=== PATIENT | male | born 1955 | race Caucasian/White ===

== ENCOUNTER 2019-03-08 15:59 | Emergency (ER) | payer OTHER, SELFPAY ==
[2019-03-08 15:59] VITALS: BP 163/92; PULSE 75; RESP 14; TEMP 36.3; O2SAT 96; BMI 37.5
--- NOTE | 2019-03-08 16:29 | ED.VISSUMM ---
- ER Visit Summary Date of Service: 03/08/19 .. Chief Complaint: Hand infection History of Present Illness: The patient is a 63 M who presents to the emergency department with right hand swelling and warmth. Patient states that on February 06 he had a large splinter anterior the medial aspect of the volar surface of the right middle finger over the proximal phalanx. Tented the skin laterally. He went to outside emergency room removed. He was placed on the antibiotic. He states that within 24 hours he was back in the emergency department tertiary care facility he states he had x-rays show any foreign bodies. He was discharged home. He has subsequently been on 2 other antibiotics. He notes that the hand continues to be swollen warm red sloughing of the skin on the third digit. Is able to make a fist. He denies any systemic fever. No lymphangitic streaking per him. He states that today [employer] called to see how he was doing was noted that his hand was still swollen and they sent him to emergency department. He notes that nothing is different with his hand today as there was 1 week ago. Physical Examination: Afebrile vital signs stable Gen: Well-nourished well-developed Head: Normocephalic atraumatic Eyes: Perrl EOMI ENT: TMs clear no rhinorrhea moist mucous membranes Neck: Supple no lymphadenopathy no JVD nontender CVS: Regular rate rhythm no murmurs normal S1-S2 Respiratory: No distress clear to auscultation bilaterally chest nontender Abdomen: Soft nontender nondistended normal bowel sounds no masses Back: Nontender Extremity: The right hand is diffusely swollen. There is increased warmth. There is no evidence of tenosynovitis. There is no lymphangitic streaking. There is some mild redness. The puncture wounds are still noted on the volar surface of the third digit. He is neurovascular intact. He can make a fist. Skin: Normal color no rash Neuro: alert orientated ?3 CN II-XII intact normal strength sensation Psych: Normal affect normal mood Emergency Department Course and Treatment: I spoke with Dr. winkler from plastic surgery. We are going to place him on Augmentin and have him follow-up urgently in the office. Patient was given return instructions. Impression: 1. Right hand cellulitis 2. Probable retained foreign body right hand This note was generated with [employer] dictation software. It may contain incorrect words, spelling, and punctuation that were not noted in review of the chart prior to signing ED Disposition - Plan for ED Patient: Disposition: Home or Assisted Living Instructions: ED Infec Skin Cellulitis Prescriptions: Amox/Clavulanate Tablet [Augmentin Tablet] 875 mg PO Q12H #20 tab Referrals: Ted Page MD [STAFF PHYSICIAN] - (call the office tomorrow and they will schedule you an appointment as soon as possible. Let them know we talked with Dr. Page today. )
[2019-03-08 17:22] VITALS: PULSE 77; RESP 16; O2SAT 97
== END 2019-03-08 17:22 | disposition home or self-care (01) ==
LOC: ED 16:45
PROVIDERS: Emergency Provider Emergency Medicine; Family Provider Family Medicine; PCP Family Medicine
DX: L03.113 Cellulitis of right upper limb (principal); I10 Essential (primary) hypertension
CPT/HCPCS: 99282

== ENCOUNTER → 2019-03-15 07:23 | Outpatient (CLI) | payer OTHER, SELFPAY ==
[2019-03-12 14:11] VITALS: BMI 38.7
--- NOTE | 2019-03-15 07:26 | MRI_ITS ---
STUDY: MRI RIGHT HAND REASON FOR EXAM: Right hand swelling, wood sliver at the base of the proximal phalanx of the long finger on 02/06/2019. Evaluate for abscess of the right long finger. TECHNIQUE: Standardized fat and water weighted pulse sequences were obtained in all 3 orthogonal planes. COMPARISON: None. FINDINGS: There is edema in the subcutis adipose space of the second through fifth digits without discrete fluid collection to indicate abscess. There is no demonstrated signal void in the subcutis adipose space of the third digit to indicate foreign body by MRI examination. There is arthrosis with chondral thinning and very mild subchondral bone edema adjacent to the second distal interphalangeal joint (inversion recovery coronal image 4) with a small cyst in the ulnar aspect of the head of the second middle phalanx. There are small marginal osteophytes and mild chondral thinning of the third distal interphalangeal joint (T1 coronal images 5, 6). Otherwise, normal interphalangeal joints. Normal second through fifth metacarpophalangeal joints. Normal flexor and extensor tendons without tenosynovitis. There is no bone edema of the phalanges or visualized metacarpals aside from the mild subchondral bone edema of the second distal interphalangeal joint, and therefore no demonstrated osteomyelitis. MRI/Upper Ext/No Jt/ wo IMPRESSION: Edema in the subcutis adipose space suggestive of cellulitis without demonstrated soft tissue abscess. 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 Electronically Signed: Jared Looney MD at 10:21 EDT Tel , Service support ,
== END ==
PROVIDERS: Family Provider Family Medicine; PCP Family Medicine; Referring Provider Surgery; Visit Provider Surgery
DX: S61.242A Puncture wound with foreign body of right middle finger without damage to nail, initial encounter (principal); L03.011 Cellulitis of right finger
CPT/HCPCS: 73218

== ENCOUNTER 2019-03-16 10:10 | Observation (INO) | payer OTHER, SELFPAY ==
[2019-03-12 14:11] VITALS: BMI 38.7
--- NOTE | 2019-03-15 07:37 | EKG12_ITS ---
Test Reason : PRE OP Blood Pressure : / mmHG Vent. Rate : 061 BPM Atrial Rate : 061 BPM P-R Int : 180 ms QRS Dur : 100 ms QT Int : 402 ms P-R-T Axes : 031 -20 013 degrees QTc Int : 404 ms Normal sinus rhythm Minimal voltage criteria for LVH, may be normal variant Borderline ECG Confirmed by LADARIUS GREENBERG ([id number]), features editor YEYO LIM ([id number]) on 03/21/2019 11:41:01 AM Referred By: Ted Page Confirmed By:BRET GREENBERG
[2019-03-15 07:56] LABS: Absolute Lymphocyte Count 2.18 X10^3/ul (0.83-4.51); Absolute Neutrophil Count 3.1 X10^3/uL (2.0-7.7); Basophil# 0.02 X10^3/uL; Basophil% 0.3 % (0-1); Eosinophil# 0.27 X10^3/uL; Eosinophils% 4.4 % (0-5); Hematocrit 41.5 % (40-54); Hemoglobin 14.1 g/dl (13.0-16.5); Lymphocyte # 2.18 X10^3/ul (4.0); Lymphocyte % 35.2 % (19-41); Mean Corpuscular Hgb 29.1 pg (27.0-32.0); Mean Corpuscular Volume 85.6 fL (80-94); Mean Platelet Vol. 10.7 fl (6.2-12.0); Monocyte# 0.57 X10^3/uL; Monocyte% 9.2 % (0-10); Neutrophil # 3.12 X10^3/uL (2.7-7.7); Neutrophil % 50.4 % (47-70); Platelet Count 202 K/mm3 (150-450); RBC Distribution Width SD 39.8 fl (35.1-43.9); Red Blood Count 4.85 M/mm3 (4.6-6.2); White Blood Count 6.2 K/mm3 (4.4-11.0)
[2019-03-15 07:59] LABS: POSITIVE COUNT NO; POSITIVE DIFFERENTIAL NO; POSITIVE MORPHOLOGY NO
[2019-03-15 08:18] LABS: Anion Gap 8 (5-15); BUN 25 mg/dL (7-18); BUN/Creat Ratio 20.8 RATIO (10-20); Calcium,Total 8.4 mg/dL (8.5-10.1); Chloride 105 mmol/L (98-107); EST Glomerular Filtration Rate 64 mL/min (>60); Est Glom Filt Rate - Afr Amer 78 mL/min (>60); Glucose 189 mg/dL (74-106); Potassium 3.8 mmol/L (3.5-5.1); Sodium Level 137 mmol/L (136-145)
--- NOTE | 2019-03-15 18:29 | HP.PCM_ITS ---
History and Physical Date of Admission: 03/16/19 HISTORY OF PRESENT ILLNESS 63 year old man presents with an infected puncture wound from foreign body splinter volar proximal base right long finger that he sustained at work on 02/06/19. The wood splinter entered the ulnar side of the finger. He went to [facility] where the wood splinter was removed. An xray showed no fracture or bony abnormality. He was discharged on antibiotics. The length of the wood splinter was 2.3 cm. He went back to work but has had persistent swelling and intermittent redness on his right long finger. He denies fever. He went to [facility] ED on 03/08/19 because of worsening redness and swelling and he was started on Augmentin. He presents today for further evaluation and treatment. PAST MEDICAL HISTORY Arthritis Back problem Carpal tunnel syndrome High blood pressure PAST SURGICAL HISTORY knee surgery neck surgery surgery on arm ALLERGIES No Known Allergies MEDICATIONS Hydrochlorothiazide [Hctz] Latanoprost 0.005% [Xalatan Opthalmic] Losartan amoxicillin 875 mg-potassium clavulanate 125 mg FAMILY HISTORY Other - CVA (cerebral vascular accident), Hypertension SOCIAL HISTORY Smoking Status: Former smoker alcohol intake: never substance use type: does not use REVIEW OF SYSTEMS General - Denies fever, fatigue, and weight loss. Eyes - Has cataracts. Denies glaucoma. ENT - Denies nasal congestion and sore throat. Endocrine - Denies excessive thirst and urination. Skin - Denies suspicious lesions and skin cancer. Musculoskeletal - Has joint pain and joint stiffness. Denies weakness of muscles and joints, back pain, and arthritis. Neuro - Denies headaches. Cardiovascular - Denies chest pain, fatigue, and shortness of breath with exertion. Psych - Denies anxiety and depression. Respiratory - Denies chronic cough and shortness of breath. Has sleep apnea. Gastrointestinal - Denies nausea, vomiting, diarrhea, and constipation. Hematologic - Denies abnormal bruising and bleeding. Genitourinary - Denies hematuria. Has urinary frequency. PHYSICAL EXAMINATION General - Alert and Oriented. HEENT - PERRL. EOMI. Throat is clear. Neck - Supple and nontender. No cervical adenopathy. Lungs - Clear to auscultation. Heart - Regular rate and rhythm. Abdomen - Soft and nondistended. Extremities - FROM. No axillary adenopathy. Radial pulses are palpable. Fingers are warm with good capillary refill. Patient is right hand dominant. 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 He has some residual redness right long finger at the volar proximal base. Has decreased sensation to pinprick right long finger more so on the ulnar side. Residual swelling on the dorsum of the right hand. Right palm is soft with tenderness at the proximal base of long finger. Neuro - CN II-XII grossly intact. Psych - Normal mood and affect. ASSESSMENT 1. Infected puncture wound from foreign body splinter volar proximal base right long finger. 2. Cellulitis right long finger. 3. Pain and swelling right long finger. 4. Paresthesias right long finger, possible digital nerve injury. 5. Possible retained foreign body right long finger. 6. Possible abscess volar proximal base right long finger. 7. Possible early tenosynovitis right long finger. PLAN Continue Augmentin antibiotics. MRI showed edema in the subcutis adipose space suggestive of cellulitis without demonstrated soft tissue abscess. 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 With his persistent redness and swelling and pain, suspect a localized infection or retained foreign body that will necessitate operative exploration. If infection is present, will leave the wound open and pack with Silver dressing changes daily. Any injuries to the digital nerves will be repaired unless pus is present in which case, the injured ends would be marked for later repair in a delayed fashion. If there is a plateau in the healing process, can proceed with delayed closure with skin graft or skin flap reconstruction. Surgery would be under general anesthesia and tourniquet control on an outpatient basis. Postop may need OT for range of motion exercises, strengthening, and edema management. Patient was informed of the risks and complications of the procedure including alternatives to surgery. These were discussed with the patient personally. Patient voices understanding and wishes to proceed. Some of the risks and complications were included in a form from the [employer]. Some of the risks and complications that were discussed included but were not inclusive of failure to diagnose including symptom relief, pain, infection, numbness, stiffness, loss of digit, RSD (CRPS), need for further surgery, contracture, and wound healing problems.
[2019-03-16] VITALS (13 sets, daily range): BP systolic 123–156; BP diastolic 74–104; PULSE 55–80; RESP 16–20; TEMP 36.2–36.8; O2SAT 93–100; BMI 38.2; BMI 38.1
--- NOTE | 2019-03-16 | TISS_PTH ---
PATIENT: DON LIM LOC: [facility] U#:[id number] AGE/SX: 63/M ROOM: TN315 RE03/16/[address]: Dr. Ted Page MD : [id number] BED: 1 DIS: 03/18/2019 SPEC #: [id number] RECD: 03/16/19 12:25 STATUS: MERRY REUmu #: [id number] BLACK: 03/16/19 00:[address]: Ted Page DEPT: SURGICAL PATHOLOGY RECD BY: Danielito Harvey ENTERED: 03/16/19 12:26 SP TYPE: Tissue Bx CA DR: Dr. José Gates MD Tissues: Finger, NOS Procedures: Surgery Specimen Level IV HEADER OPERATION: Exploration infected splint puncture wound proximal volar PRE-OP DIAGNOSIS: Infected puncture wound from foreign body splint volar proximal base right long finger; cellulitis right long finger; pain and swelling right long finger TISSUE SUBMITTED: Tissue of infected splinter right long finger MICROSCOPIC DIAGNOSIS Tissue of right long finger, excision: Organizing blood clot, fat necrosis and mild chronic inflammation. AM:mary 03/20/19 MICROSCOPIC DESCRIPTION Slides are reviewed. GROSS DESCRIPTION Received in fixative is one container labeled with the patient's name and designated tissue of infected splinter right long finger. The specimen consists of multiple irregular fragments of yellow-shah soft tissue that in aggregate measure 1.8 x 1 x 0.2 cm. The specimen is totally submitted in one cassette. / AM:mary 03/16/19 TC:5 CPT: 58529
--- NOTE | 2019-03-16 10:02 | PCM.OPRPT ---
Report of Operation Date of Procedure: 03/16/19 Pre-Operative Diagnosis: 1. Infected puncture wound from foreign body splinter volar proximal base right long finger. 2. Cellulitis right long finger. 3. Pain and swelling right long finger. 4. Paresthesias right long finger, possible digital nerve injury. 5. Possible retained foreign body right long finger. 6. Possible abscess volar proximal base right long finger. 7. Possible early tenosynovitis right long finger. Post-Operative Diagnosis: 1. Infected puncture wound abscess from foreign body splinter volar proximal base right long finger. 2. Abscess volar proximal base right long finger. 3. Pain and swelling right long finger. 4. Paresthesias radial and ulnar digital nerves right long finger with nerve compression. 5. Inflammatory flexor tenosynovitis right long finger. Surgery/Procedure Performed:: 1. Surgical preparation volar proximal base right long finger with incision and drainage and excisional debridement infected splinter wound abscess. 2. Drainage tendon sheath for inflammatory flexor tenosynovitis. 3. Neuroplasty radial and ulnar digital nerves right long finger. Description of Surgical Findings:: 63 year old man presents with an infected puncture wound from foreign body splinter volar proximal base right long finger that he sustained at work on 02/06/19. The wood splinter entered the ulnar side of the finger. He went to [facility] where the wood splinter was removed. An xray showed no fracture or bony abnormality. He was discharged on antibiotics. The length of the wood splinter was 2.3 cm. He went back to work but has had persistent swelling and intermittent redness on his right long finger. He denies fever. He went to [place] ED on 03/08/19 because of worsening redness and swelling and he was started on Augmentin. MRI showed edema in the subcutis adipose space suggestive of cellulitis without demonstrated soft tissue abscess. 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 Patient was informed of the risks and complications of the procedure including alternatives to surgery. These were discussed with the patient personally. Patient voices understanding and wishes to proceed. Some of the risks and complications that were discussed included but were not inclusive of failure to diagnose including symptom relief, pain, infection, numbness, stiffness, loss of digit, RSD (CRPS), need for further surgery, contracture, and wound healing problems. Total tourniquet time - 45 minutes and 13 minutes. Length of zig zag incisions - 9 cm. geoscience technician: None Type of Anesthesia:: General Specimen's removed: Infected splinter wound abscess volar proximal base right long finger to Pathology and Microbiology. Drains: None. Estimated Blood Loss (mL): 25 ml. Description of Procedure: Patient was taken to OR in supine position and was placed under general anesthesia. The right upper extremity was prepped and draped in the usual fashion. A tourniquet was placed. SCD's were placed for DVT prophylaxis. Perioperative antibiotics were given intravenously. Using xylocaine with epinephrine, a digital metacarpal block was infiltrated for postop pain relief. I elevated the right hand and wrapped with an Esmarch bandage as the tourniquet was elevated to 250 mmHg continuous suction. Under loupe magnification, I made zig zag incisions at the volar proximal base of the right long finger down into the subcutaneous tissue. Scar tissue was seen in the subcutaneous tissue where the splinter had been. A lot of fat necrosis was seen and some pus was seen. The fat necrosis and the splinter scar tissue was excised and debrided. The pus did not involve the flexor tendon sheath yet. When I dissected down to the flexor tendon sheath, it was swollen with inflammatory exudate. There was an inflammatory flexor tenosynovitis. I extended the zig zag incisions both proximally into the distal palmar crease and distally to expose the flexor tendon sheath. The A1 richard was a little thickened and I made an incision in the richard and released it to minimize triggering in the future. With the amount of scar tissue that is anticipated to form because of the severity of the infection, he is at risk of developing a trigger finger in the future. I placed a catheter into the proximal end of the tendon sheath and then into the distal end of the tendon sheath and copiously irrigated out the tendon sheath into clear drainage was seen. No pus was seen but there was inflammatory exudate present. There was dense scar tissue surrounding the ulnar and radial digital nerves at the base of the finger where the wood splinter had been. I performed a neuroplasty around the ulnar and radial digital nerves at the base of the finger where the wood splinter had been by dissecting out the scar tissue that was compressing the nerves. I also dissected some residual inflammatory tissue that was compressing the nerves. Both digital nerves were intact. The wound was then irrigated with saline. The debrided tissue was sent to Pathology for analysis and to Microbiology for culture. A positive culture may necessitate antibiotic modification. The tourniquet was released after 45 minutes. There was some bleeding proximally that necessitated hemostasis with electrocautery. It also necessitated reinflating the tourniquet for an additional 13 minutes. When it was released again, the bleeding was controlled. I partially closed the wound at the zig and the zag portion of the incision with 5-0 Nylon vertical mattress interrupted sutures. The length of the zig zag incision was 9 cm. The open wound areas were dressed with Mepitel nonadherent dressing followed by 4x4 gauze and Betadine followed by 2 inch Tori wrap and a compression nicole wrap. 4x4 gauze was also placed in the web spaces. Patient tolerated the procedure well and was sent to PACU in satisfactory condition. Patient will be sent upstairs for continued postop care. Will start Aquacel Silver dressing changes tomorrow. Will discharge him when he is tolerating po analgesia. He will keep his right hand elevated during the initial postop period. Will encourage range of motion exercises to minimize stiffness. Will also set him up with OT as an outpatient for range of motion exercises, strengthening, and edema management. Will continue Unasyn antibiotics. Grafts/Implants Used: None. - Complications Noine. - Admit VTE Documentation VTE Present on Admission: No VTE Mechan Device Prophylaxis: SCD's VTE Pharm Prophylaxis ordered?: No Code Visit Surgery Charges CPT - 64700 ICD-10 - S61.242A, L02.511, M65.9, T14.8xxA, R20.2, M79.644, M79.89 64805 S61.242A, M65.9, L02.511, T14.8xxA, R20.2, M79.644, M79.89 57090 S61.242A, T14,8xxA, R20.2, L02.511, M65.9, M79.644, M79.89
[2019-03-16] MEDS: Lactated Ringers 1,000 ML 60 ML IV (12:19)
[2019-03-16] MEDS: HYDROmorphone 2 MG TABLET PO ×3 (14:16→21:23)
[2019-03-16] MEDS: 0.9% NaCl Peripheral Flush Adult/Peds IV (17:49)
[2019-03-16] MEDS: Ketorolac 15 MG/ML Vial IV (17:49)
--- NOTE | 2019-03-16 18:19 | NURSING ---
This RN spoke with Lindsay in pharmacy regarding compatibility of LR and Unasyn. Notified her that it lists it as unknown. Lindsay verified that her resource also says unknown and that med should be hung with NS- same completed.
[2019-03-16] MEDS: Latanoprost 0.005% 1 Bottle 1 DRP EACH EYE (21:23)
[2019-03-16] MEDS: Docusate Sodium 100 MG Capsule PO (21:24)
[2019-03-17] MEDS: 0.9% NaCl Peripheral Flush Adult/Peds IV ×4 (00:51→23:44)
[2019-03-17] MEDS: Ketorolac 15 MG/ML Vial IV ×3 (00:52→18:20)
[2019-03-17] MEDS: HYDROmorphone 2 MG TABLET PO ×2 (03:38→07:49)
[2019-03-17 03:49] VITALS: BP 143/84; PULSE 66; RESP 18; TEMP 37.1; O2SAT 100
[2019-03-17 07:11] LABS: Hematocrit 37.5 % (40-54); Hemoglobin 12.6 g/dl (13.0-16.5); Mean Corp Hgb Conc 33.6 g/gl (32-36); Mean Corpuscular Hgb 29.6 pg (27.0-32.0); Mean Platelet Vol. 10.3 fl (6.2-12.0); Platelet Count 172 K/mm3 (150-450); RBC Distribution Width CV 13.2 % (11.6-14.6); RBC Distribution Width SD 42.6 fl (35.1-43.9); Red Blood Count 4.26 M/mm3 (4.6-6.2); White Blood Count 8.3 K/mm3 (4.4-11.0)
[2019-03-17 07:13] LABS: Scan Indicated on CBC? Y/N NO
[2019-03-17 07:28] VITALS: BP 155/92; PULSE 66; RESP 16; TEMP 36.8; O2SAT 100
[2019-03-17 07:34] LABS: Anion Gap 5 (5-15); BUN 20 mg/dL (7-18); BUN/Creat Ratio 19.4 RATIO (10-20); Calcium,Total 8.3 mg/dL (8.5-10.1); Chloride 108 mmol/L (98-107); Creatinine, Serum 1.03 mg/dL (0.70-1.30); EST Glomerular Filtration Rate 77 mL/min (>60); Est Glom Filt Rate - Afr Amer 93 mL/min (>60); Estimated Creatinine Clearance 73.83 ml/min; Glucose 113 mg/dL (74-106); Potassium 3.9 mmol/L (3.5-5.1); Prealbumin 23.9 mg/dL (20.0-40.0); Sodium Level 141 mmol/L (136-145)
[2019-03-17] MEDS: Lactated Ringers 1,000 ML 60 ML IV (09:31)
[2019-03-17] MEDS: hydroCHLOROthiazide 25 MG Tablet PO (09:35)
[2019-03-17] MEDS: Losartan Potassium 100 MG Tablet PO (09:35)
[2019-03-17] MEDS: Docusate Sodium 100 MG Capsule PO ×2 (09:35→20:56)
[2019-03-17] MEDS: HYDROmorphone 1 MG/ML Syringe IV (10:55)
--- NOTE | 2019-03-17 11:36 | PCM.PN.SRG ---
Subjective: Postop #1 Patient complains of wound pain. Still needs IV analgesia. Tolerated the Silver dressing change reasonably well but needed IV analgesia. - Physical Exam General: Alert, Oriented x3 HEENT: PERRLA, EOMI Oral: Moist Mucosa Neck: Supple Extremities: Edema - mild swelling right upper extremity., Peripheral Pulses Normal Skin: Ulcer/ Wound - right long finger wound is stable. No further evidence of infection noted. Mild oozing easily controlled with gauze compression. The Aquacel Silver dressing change was painful as he needed IV analgesia. Will keep one more day. Neurological: Cranial nerves II-XII grossly intact Psych/Mental Status: Normal Affect, Appropriate Vital Signs Temp Pulse Resp BP Pulse Ox 98.3 F 66 16 155/92 H 100 03/17/19 07:28 03/17/19 07:28 03/17/19 07:28 03/17/19 07:28 03/17/19 07:28 Oxygen Flow Rate (L/min) 2 Oxygen Delivery Method Room Air Weight: 266 lb Body Mass Index (BMI) 38.1 Intake and Output for Last 24 Hours 03/15/19 03/16/19 03/17/19 23:59 23:59 23:59 Intake Total 2990 / 2990 655 / 655 Balance 2990 / 2990 655 / 655 Microbiology Past 72 Hours 03/16/19 Unknown Gram Stain - Final Tissue - Other Laboratory Tests Past 24 Hrs 03/17/19 03/17/19 06:31 06:31 WBC 8.3 RBC 4.26 L Hgb 12.6 L Hct 37.5 L MCV 88.0 MCH 29.6 MCHC 33.6 RDW 13.2 RDW Differential 42.6 Plt Count 172 MPV 10.3 Sodium 141 Potassium 3.9 Chloride 108 H Carbon Dioxide 28.0 Anion Gap 5 BUN 20 H Creatinine 1.03 Estim Creat Clear Calc 73.83 Est GFR (MDRD) Af Amer 93 Est GFR (MDRD) Non-Af 77 BUN/Creatinine Ratio 19.4 Glucose 113 H Calcium 8.3 L Prealbumin 23.9 Medical Necessity - Tobacco Use Smoking Status: Former smoker Assessment/Plan All Active Problems (Last Updated 03/12/19 @ 14:09 by Celeste Silva) Swelling of right hand (Acute) Pain in right finger(s) (Acute) Cellulitis of finger, right (Acute) Puncture wound with foreign body of right middle finger without damage to nail, initial encounter (Acute) 1. Infected puncture wound abscess from foreign body splinter volar proximal base right long finger. 2. Cellulitis right long finger. 3. Pain and swelling right long finger. 4. Paresthesias right long finger. 5. Abscess volar proximal base right long finger. 6. Inflammatory flexor tenosynovitis right long finger. 7. s/p surgical preparation volar proximal base right long finger with incision and drainage and excisional debridement infected splinter wound abscess and drainage tendon sheath for inflammatory flexor tenosynovitis and neuroplasty radial and ulnar digital nerves right long finger. Wound right long finger is stable. No further evidence of infection noted at this time. Redressed the wound with Aquacel Silver. It was painful and he needed IV analgesia. Will keep him one more day for another dressing change. I anticipate he will be able to tolerate with po analgesia tomorrow and anticipate discharge tomorrow. Operative culture is negative thus far. Continue IV Unasyn. Anticipate discharge on Augmentin. Prealbumin was 23.9. Encourage nutritional supplementation with protein to help the healing process. As an outpatient, will set him up with OT for range of motion exercises, strengthening, and edema management.
[2019-03-17 13:53] VITALS: BP 132/73; PULSE 66; RESP 16; TEMP 36.7; O2SAT 96
[2019-03-17 20:36] VITALS: BP 155/81; PULSE 66; RESP 16; TEMP 36.7; O2SAT 97
[2019-03-17] MEDS: Latanoprost 0.005% 1 Bottle 1 DRP EACH EYE (20:56)
[2019-03-18 01:19] VITALS: BP 162/83; PULSE 64; RESP 18; TEMP 36.6; O2SAT 96
[2019-03-18 05:31] VITALS: BP 160/86; PULSE 64; RESP 16; TEMP 36.9; O2SAT 96
[2019-03-18] MEDS: 0.9% NaCl Peripheral Flush Adult/Peds IV (05:40)
[2019-03-18] MEDS: Lactated Ringers 1,000 ML 60 ML IV (05:54)
[2019-03-18 08:19] VITALS: BP 147/85; PULSE 72; RESP 16; TEMP 36.7; O2SAT 95
[2019-03-18] MEDS: hydroCHLOROthiazide 25 MG Tablet PO (08:32)
[2019-03-18] MEDS: Docusate Sodium 100 MG Capsule PO (08:32)
[2019-03-18] MEDS: Losartan Potassium 100 MG Tablet PO (08:32)
--- NOTE | 2019-03-18 13:26 | PCM.PN.SRG ---
Subjective: Postop #2 Patient is resting comfortably. Tolerated the Silver dressing change with po analgesia. - Physical Exam General: Alert, Oriented x3 HEENT: PERRLA, EOMI Oral: Moist Mucosa Neck: Supple Abdomen: Soft, Non-Distended Extremities: Edema - mild edema right hand that is slowly resolving., Peripheral Pulses Normal Skin: Ulcer/ Wound - right long finger wound is stable. No further evidence of infection noted. Redressed with Aquacel Silver and he tolerated it well with po analgesia. Neurological: Cranial nerves II-XII grossly intact Psych/Mental Status: Normal Affect, Appropriate Vital Signs Temp Pulse Resp BP Pulse Ox 98.1 F 72 16 147/85 H 95 03/18/19 08:19 03/18/19 08:19 03/18/19 08:19 03/18/19 08:03/18/19 08:19 Oxygen Flow Rate (L/min) 2 Oxygen Delivery Method Room Air Weight: 266 lb Body Mass Index (BMI) 38.1 Intake and Output for Last 24 Hours 03/16/19 03/17/19 03/18/19 23:59 23:59 23:59 Intake Total 2990 / 2990 655 / 655 1526 / 1526 Output Total 275 / 275 Balance 2990 / 2990 655 / 655 1251 / 1251 Microbiology Past 72 Hours 03/16/19 Unknown Gram Stain - Final Tissue - Other Wound Culture - Preliminary No growth-Final to follow Medical Necessity - Tobacco Use Smoking Status: Former smoker Assessment/Plan All Active Problems (Last Updated 03/12/19 @ 14:09 by Cleeste Silva) Swelling of right hand (Acute) Pain in right finger(s) (Acute) Cellulitis of finger, right (Acute) Puncture wound with foreign body of right middle finger without damage to nail, initial encounter (Acute) 1. Infected puncture wound abscess from foreign body splinter volar proximal base right long finger. 2. Cellulitis right long finger. 3. Pain and swelling right long finger. 4. Paresthesias right long finger. 5. Abscess volar proximal base right long finger. 6. Inflammatory flexor tenosynovitis right long finger. 7. s/p surgical preparation volar proximal base right long finger with incision and drainage and excisional debridement infected splinter wound abscess and drainage tendon sheath for inflammatory flexor tenosynovitis and neuroplasty radial and ulnar digital nerves right long finger. Wound right long finger is stable. No further evidence of infection noted at this time. Redressed the wound with Aquacel Silver. He tolerated it well with po analgesia. With the exposed nerves from the neuroplasty, will add Neurontin. Operative culture is negative thus far. Will discharge on Augmentin. Prealbumin was 23.9. Encourage nutritional supplementation with protein to help the healing process. As an outpatient, will set him up with OT for range of motion exercises, strengthening, and edema management. Discharge home today. Wrote script for Augmentin for 14 days (28 tabs) and a refill. Wrote scripts for Dilaudid for pain (50 tabs) and for Neurontin for nerve pain (60 tabs). Wrote script for Colace for constipation (60 tabs). Followup office Tuesday03/20/19 for a Silver dressing change.
--- NOTE | 2019-03-18 13:31 | PCM.DC ---
You will use the following diet at home:: No restrictions, Other - encourage nutritional supplementation with protein to help the healing process. Discharge Activity: May not drive while taking narcotic pain medications., May Shower - place plastic bag over right hand when showering., - - elevate right hand. May resume sexual activity in: No Restrictions Weight Bearing Status: Weight bearing as tolerated Lifting Restrictions: no lifting with right hand. Keep extremity elevated above heart level: Right Arm Call your doctor if your incision/area has: Continuous Slow Oozing, Sudden Increased Bleeding, Increased Pain/ Swelling, Increased Redness, Foul Smelling Discharge, Swelling at the incision site Call your doctor if you observe: Fever of 101 or Higher, Coldness, Increased Pain, Shortness of breath, Chest pain, Calf discomfort, Uncontrolled pain Suture Line Care: - - Aquacel silver dressing changes 3 times per week in office until family can do them at home on a daily basis. Change Dressing in (Days):: 2 - will do silver dressing change in office. Cleanse incision/area with: - - place plastic bag over right hand when showering. Allergies/Adverse Reactions: Allergies No Known Allergies Allergy (Verified 03/16/19 07:19) Medications to take at Discharge Hydrochlorothiazide [Hctz] 25 mg PO DAILY 08/11/16 Latanoprost 0.005% [Xalatan Opthalmic] 1 drp EACH EYE QHS 08/11/16 Losartan Potassium 100 mg PO DAILY 03/08/19 Amoxicillin/Potassium Clav [Amox-Clav 875-125 mg Tablet] 1 tab PO BID #28 tab 03/18/19 Docusate Sodium [Colace] 100 mg PO BID #60 cap 03/18/19 Gabapentin [Neurontin] 300 mg PO BIDCM #60 cap 03/18/19 HYDROmorphone tablet [Dilaudid] 2 - 4 mg PO 4X/DAY PRN PRN 7 Days #50 tab 03/18/19 The following prescriptions were given: HYDROmorphone tablet [Dilaudid] 2 - 4 mg PO 4X/DAY PRN PRN 7 Days #50 tab PRN Reason: Severe Pain (6-08/02) Amoxicillin/Potassium Clav [Amox-Clav 875-125 mg Tablet] 1 tab PO BID #28 tab Docusate Sodium [Colace] 100 mg PO BID #60 cap Gabapentin [Neurontin] 300 mg PO BIDCM #60 cap Orders to be completed after discharge: 12 Lead EKG [CVS] Time Frame: 03/14/19, Facility: [facility], Location: Cardiovascular Services Basic Metabolic Profile (BMP) Time Frame: 03/14/19, Location: Laboratory CBC-Complete Blood Cnt No Diff Time Frame: 03/14/19, Location: Laboratory Primary Care Physician: José Gates MD [Primary Care Provider] - Test Results: Test results from this visit will be discussed in further detail at your follow-up appointment, if applicable. Please Follow Up With: Ted Page MD When: Wednesday March 20, 2019. call [phone] for appt time. Proposed Discharge Date: 03/18/19
--- NOTE | 2019-03-18 13:35 | DCINST_ITS ---
You will use the following diet at home:: No restrictions, Other - encourage nutritional supplementation with protein to help the healing process. Discharge Activity: May not drive while taking narcotic pain medications., May Shower - place plastic bag over right hand when showering., - - elevate right hand. May resume sexual activity in: No Restrictions Weight Bearing Status: Weight bearing as tolerated Lifting Restrictions: no lifting with right hand. Keep extremity elevated above heart level: Right Arm Call your doctor if your incision/area has: Continuous Slow Oozing, Sudden Increased Bleeding, Increased Pain/ Swelling, Increased Redness, Foul Smelling Discharge, Swelling at the incision site Call your doctor if you observe: Fever of 101 or Higher, Coldness, Increased Pain, Shortness of breath, Chest pain, Calf discomfort, Uncontrolled pain Suture Line Care: - - Aquacel silver dressing changes 3 times per week in office until family can do them at home on a daily basis. Change Dressing in (Days):: 2 - will do silver dressing change in office. Cleanse incision/area with: - - place plastic bag over right hand when showering. Allergies/Adverse Reactions: Allergies No Known Allergies Allergy (Verified 03/16/19 07:19) Medications to take at Discharge Hydrochlorothiazide [Hctz] 25 mg PO DAILY 08/11/16 Latanoprost 0.005% [Xalatan Opthalmic] 1 drp EACH EYE QHS 08/11/16 Losartan Potassium 100 mg PO DAILY 03/08/19 Amoxicillin/Potassium Clav [Amox-Clav 875-125 mg Tablet] 1 tab PO BID #28 tab 03/18/19 Docusate Sodium [Colace] 100 mg PO BID #60 cap 03/18/19 Gabapentin [Neurontin] 300 mg PO BIDCM #60 cap 03/18/19 HYDROmorphone tablet [Dilaudid] 2 - 4 mg PO 4X/DAY PRN PRN 7 Days #50 tab 03/18/19 The following prescriptions were given: HYDROmorphone tablet [Dilaudid] 2 - 4 mg PO 4X/DAY PRN PRN 7 Days #50 tab PRN Reason: Severe Pain (6-08/02) Amoxicillin/Potassium Clav [Amox-Clav 875-125 mg Tablet] 1 tab PO BID #28 tab Docusate Sodium [Colace] 100 mg PO BID #60 cap Gabapentin [Neurontin] 300 mg PO BIDCM #60 cap Orders to be completed after discharge: 12 Lead EKG [CVS] Time Frame: 03/14/19, Facility: [facility], Location: Cardiovascular Services Basic Metabolic Profile (BMP) Time Frame: 03/14/19, Location: Laboratory CBC-Complete Blood Cnt No Diff Time Frame: 03/14/19, Location: Laboratory Primary Care Physician: José Gates MD [Primary Care Provider] - Test Results: Test results from this visit will be discussed in further detail at your follow- up appointment, if applicable. Please Follow Up With: Ted Page MD When: Wednesday March 20, 2019. call [phone] for appt time. Proposed Discharge Date: 03/18/19
[2019-03-18 14:31] VITALS: BP 150/98; PULSE 78; RESP 16; TEMP 36.8; O2SAT 95
== END 2019-03-18 14:49 | disposition home or self-care (01) ==
LOC: MS3 10:53
PROVIDERS: Admitting Provider Surgery; Family Provider Family Medicine; PCP Family Medicine; Referring Provider Surgery; Visit Provider Surgery
PROC: (CPT 26020; principal; 2019-03-16 08:15)
DX: S60.454A Superficial foreign body of right ring finger, initial encounter (principal); L03.011 Cellulitis of right finger; W45.8XXA Other foreign body or object entering through skin, initial encounter; Y93.89 Activity, other specified; Y92.89 Other specified places as the place of occurrence of the external cause; Y99.0 Civilian activity done for income or pay; M19.90 Unspecified osteoarthritis, unspecified site; I10 Essential (primary) hypertension; Z87.891 Personal history of nicotine dependence; R20.2 Paresthesia of skin; M65.841 Other synovitis and tenosynovitis, right hand; F41.9 Anxiety disorder, unspecified; F32.9 Major depressive disorder, single episode, unspecified; G47.30 Sleep apnea, unspecified; G25.81 Restless legs syndrome
CPT/HCPCS: 26020; 64702; 36415; 80048; 84134; 85025; 85027; 87070; 87075; 87102; 87176; 87205; 87206; 88305; 93005; 96365; 96366; 96375; 96376; 99218; J7120; A4216; G0378; G0379; J0295; J2405

== ENCOUNTER 2019-09-17 11:00 | Outpatient (RCR) | payer OTHER, SELFPAY ==
[2019-03-30 16:04] VITALS: BMI 38.1
[2019-04-02 14:03] VITALS: BMI 38.1
--- NOTE | 2019-04-09 16:01 | HP.OTEVAL_ITS ---
Patient's Visit Information DON LIM is a 63 year old M, referred to Occupational Therapy by Ted Page MD, with a diagnosis of Puncture wound R MF. Date of Evaluation: 04/04/19 Occupational Therapist: TERE Gordillo/Heike - Subjective Subjective: 63 y/o male was referred to OT by Dr. Page. February 06 2019- got a piece of wood in R MF while using planer at work; went to [facility] to get the splinter removed; was put on antibiotics. Finger became swollen and red. Went back to work and hand wasn't getting any better (went to doctor in mean time in [place] but they couldn't do anything..?). Then went to [place] [facility] 03/08/19 for fever and infection of his hand. On 03/16/19 Kaylee opperated to remove fragments and debridement to clean out infection. Patient lives alone (drives 3x/week to [place] for nursing to change dressing). Patient works at [employer] 5 days/week. Patient is Right hand dominant. - Pain R hand 4 Pain Intensity Range: 4, 5 - Objective Objective/Observation: Pt arrived w/ R hand wrapped in nicole bandage and gauze/dressing over incision and around R hand. When dressing removed- patient still had open incisions w/ dressing filling the wounds, small stiching, slightly dried blood around gauze. Edema in fingers of the Right hand. Patient had difficulty completing ROM especially in MF. - ROM MP: R IF: 45 ; MF 40; RF 28; LF 90 PIP: R IF: 62 ; MF 30; RF 75; LF 90 ROM Comments: L hand: able to make composite fist - Edema DIP: R IF 6.7; MF 6.8; RF 6.2; LF 5.8: L IF 7.5; MF 7.7; RF 7.5; LF 6.2 - Sensation Sensation Comments: States having some numbness at tip of R MF. - Quick DASH-Disab of Arm,Shoulder& Hand Quick DASH Score: 80.0000 - Goals Goal:: Pt to demonstrate Right homebound teacher and pinch strength to WFL in order to complete ADLs/IADLs by D/C. Goal:: Pt to demonstrate ROM in all fingers/joints of his R hand in order to make a composite fist in preparation for ADL/IADL activities by D/C. Goal:: Patient to report a decrease in pain to no more than a 1 (on scale of 1- 10) in his R hand in order to complete ADLs/IADLs by D/C. Goal:: Pt will demonstrate the ability to complete manipulation of fasteners independently in order to complete dressing skills by D/C. Goal:: Pt will demonstrate the ability to complete light meal prep activities w/ use of his Right hand independently by D/C. Goal:: Pt will demonstrate the ability to follow HEP (scar management, ROM exercises, strengthening exercises) as he progresses w/ 100% accuracy by D/C. - Rehabilitation General Assessment: Patient is a 63 y/o male who was referred to OT due to initial splinter in R MF that turned into an infection due to pieces left in finger. Patient had sx w/ Dr. Page on 03/16/19. Patient is Right hand dominant and lives alone. He is having difficulty completing ADLs/IADLs and is unable to return to work due to wound care, limited ROM, limited strength and edema in his Right hand. Pt would benefit from OT 2-3x/week for 4-6 weeks to increase ROM, strength, scar management, and monitor self-care skills. Rehabilitation Potential: Excellent - Anticipated Interventions Anticipated Interventions: A/AAROM/PROM, Strengthening, Edema Control, Scar Care, Desensitization, Wound Care, Modalities, Fine Motor Coord/Egrber, Home Program - Visit Plan Frequency: 3x /Week Duration: 6 Weeks General Plan: Patient recommended to schedule visits 2-3x/week for 4-6 weeks to focus on ROM, strengthening, edema control and scar management in order to complete ADLs/IADLs/return to work. TEXT: Thank you for the opportunity to evaluate your patient. For Medicare and Medicare HMO plans, please review the plan of care and approve it. It will need to be FAXED BACK to us at [phone] for Medicare purposes. Please let me know if there are questions or concerns regarding this plan of care. Physician Signature: Date:
--- NOTE | 2019-04-23 15:29 | HP.OTEVAL_ITS ---
Patient's Visit Information DON LIM is a 63 year old M, referred to Occupational Therapy by Ted Page MD, with a diagnosis of Puncture wound R MF. Date of Evaluation: 04/04/19 Occupational Therapist: Malia Lopez - Subjective Subjective: 63 y/o male was referred to OT by Dr. Page. February 06 2019- got a piece of wood in R MF while using planer at work; went to [facility] to get the splinter removed; was put on antibiotics. Finger became swollen and red. Went back to work and hand wasn't getting any better (went to doctor in mean time in [place] but they couldn't do anything..?). Then went to [place] [facility] 03/08/19 for fever and infection of his hand. On 03/16/19 Kaylee opperated to remove fragments and debridement to clean out infection. Patient lives alone (drives 3x/week to [place] for nursing to change dressing). Patient works at [employer] 5 days/week. Patient is Right hand dominant. - Pain R hand 4 Pain Intensity Range: 4, 5 - Objective Objective/Observation: Pt arrived w/ R hand wrapped in nicole bandage and gauze/dressing over incision and around R hand. When dressing removed- patient still had open incisions w/ dressing filling the wounds, small stiching, slig htly dried blood around gauze. Edema in fingers of the Right hand. Patient had difficulty completing ROM especially in MF. - ROM MP: R IF: 45 ; MF 40; RF 28; LF 90 PIP: R IF: 62 ; MF 30; RF 75; LF 90 ROM Comments: L hand: able to make composite fist - Edema DIP: R IF 6.7; MF 6.8; RF 6.2; LF 5.8: L IF 7.5; MF 7.7; RF 7.5; LF 6.2 - Sensation Sensation Comments: States having some numbness at tip of R MF. - Quick DASH-Disab of Arm,Shoulder& Hand Quick DASH Score: 80.0000 - Goals Goal:: Pt to demonstrate Right content architect and pinch strength to WFL in order to complete ADLs/IADLs by D/C. Goal:: Pt to demonstrate ROM in all fingers/joints of his R hand in order to make a composite fist in preparation for ADL/IADL activities by D/C. Goal:: Patient to report a decrease in pain to no more than a 1 (on scale of 1- 10) in his R hand in order to complete ADLs/IADLs by D/C. Goal:: Pt will demonstrate the ability to complete manipulation of fasteners independently in order to complete dressing skills by D/C. Goal:: Pt will demonstrate the ability to complete light meal prep activities w/ use of his Right hand independently by D/C. Goal:: Pt will demonstrate the ability to follow HEP (scar management, ROM exercises, strengthening exercises) as he progresses w/ 100% accuracy by D/C. - Rehabilitation General Assessment: Patient is a 63 y/o male who was referred to OT due to initial splinter in R MF that turned into an infection due to pieces left in finger. Patient had sx w/ Dr. Page on 03/16/19. Patient is Right hand dominant and lives alone. He is having difficulty completing ADLs/IADLs and is unable to return to work due to wound care, limited ROM, limited strength and edema in his Right hand. Pt would benefit from OT 2-3x/week for 4-6 weeks to increase ROM, strength, scar management, and monitor self-care skills. Rehabilitation Potential: Excellent - Anticipated Interventions Anticipated Interventions: A/AAROM/PROM, Strengthening, Edema Control, Scar Care, Desensitization, Wound Care, Modalities, Fine Motor Coord/Gerber, Home Program - Visit Plan Frequency: 3x /Week Duration: 6 Weeks General Plan: Patient recommended to schedule visits 2-3x/week for 4-6 weeks to focus on ROM, strengthening, edema control and scar management in order to complete ADLs/IADLs/return to work. TEXT: Thank you for the opportunity to evaluate your patient. For Medicare and Medicare HMO plans, please review the plan of care and approve it. It will need to be FAXED BACK to us at [phone] for Medicare purposes. Please let me know if there are questions or concerns regarding this plan of care. Physician Signature: Date:
--- NOTE | 2019-08-15 12:23 | OTREVAL_ITS ---
Ted Page MD, It has been my pleasure to treat DON LIM over the last 12 visits for Puncture wound R MF. Please see the progress note below for an update on the occupational therapy plan of care! Subjective: Pt arrived stating R hand about the same Objective/Function: measurements taken at beginning of session. R Licensed And Certified Midwife strength 66#. R IF MCP +5/80 PIP 0/69. R MF MCP -2 PIP -24/82. pt is making gains with his ROM but continues to struggle with end range at PIP IF- pt would benefit from cont. skilled OT services to continue to gain ROM to form a composite fist. R RF MCP + Plan Frequency: 2x /Week Duration: 4 Weeks Visits in this POC: 12 Plan: cont POC Goals - Goals Goal:: Pt to demonstrate Right supervisor insulation and pinch strength to WFL in order to complete ADLs/IADLs by D/C. Goal:: Pt to demonstrate ROM in all fingers/joints of his R hand in order to make a composite fist in preparation for ADL/IADL activities by D/C. Goal:: Patient to report a decrease in pain to no more than a 1 (on scale of 1- 10) in his R hand in order to complete ADLs/IADLs by D/C. Goal:: Pt will demonstrate the ability to complete manipulation of fasteners independently in order to complete dressing skills by D/C. Goal:: Pt will demonstrate the ability to complete light meal prep activities w/ use of his Right hand independently by D/C. Goal:: Pt will demonstrate the ability to follow HEP (scar management, ROM ex ercises, strengthening exercises) as he progresses w/ 100% accuracy by D/C. Anticipated Interventions Anticipated Interventions: A/AAROM/PROM, Strengthening, Edema Control, Scar Care, Desensitization, Wound Care, Modalities, Fine Motor Coord/Gerber, Home Program Please do not hesitate to contact me at [phone] by phone or if you have questions or concerns regarding this new plan of care! Sincerely, Sapphire Hess, OTR/L, CHT
--- NOTE | 2019-09-17 11:21 | HP.OTDCSUM ---
HP - OT D/C Summary It has been my pleasure to treat DON LIM under orders from Ted Page MD, for the diagnosis of Puncture wound R MF for a total of 8 visit(s). Please see the following information for a summary of their discharge status. - Overall Improvement % Improvement: 80 - Objective Objective/Function: right computer systems security analyst strength 75# a increase from 30#. right lateral pinch 22#. right tripod pinch 20#. right MF ROM MCP 0/80 PIP -25/75. DIP -/55. pt demo the ability for form a light composite fist MF .5 away from touching his palm. PT has a functional grasp that he reports doesn't limit him with daily occupations at this time. - Goals Patient Goals: Regain Mobility, Regain Strength, Decrease Pain, Return to Work, Decrease Swelling/Stiffness, Use Hand/Wrist/Arm Normally Again, Resume Former Household Responsibilities (Cooking,Cleaning,Yard, etc.) Goal:: Pt to demonstrate Right computer systems security analyst and pinch strength to WFL in order to complete ADLs/IADLs by D/C. Goal:: Pt to demonstrate ROM in all fingers/joints of his R hand in order to make a composite fist in preparation for ADL/IADL activities by D/C. Goal:: Patient to report a decrease in pain to no more than a 1 (on scale of 1-10) in his R hand in order to complete ADLs/IADLs by D/C. Goal:: Pt will demonstrate the ability to complete manipulation of fasteners independently in order to complete dressing skills by D/C. Goal:: Pt will demonstrate the ability to complete light meal prep activities w/ use of his Right hand independently by D/C. Goal:: Pt will demonstrate the ability to follow HEP (scar management, ROM exercises, strengthening exercises) as he progresses w/ 100% accuracy by D/C. - Plan Plan: D/C - D/C Information Discharge Comments: pt has made good gains with his ROM and strength- pt was compliant with HEP and demo understanding of his recovery. Pt is d/c at this time. If there are questions or concerns regarding this patient's occupational therapy, please fell free to call me at [phone]. Thank you for the referral of this patient. Sincerely, Sapphire Hess, OTR/L, CHT
== END 2019-09-17 19:00 | disposition home or self-care (01) ==
LOC: OT 11:00
PROVIDERS: Family Provider Family Medicine; PCP Family Medicine; Referring Provider Surgery; Visit Provider Surgery
DX: S61.24 Puncture wound with foreign body of finger without damage to nail (principal); L02.511 Cutaneous abscess of right hand; M79.644 Pain in right finger(s); R20.2 Paresthesia of skin; T14.8XXD Other injury of unspecified body region, subsequent encounter; M65.9 Synovitis and tenosynovitis, unspecified; M79.89 Other specified soft tissue disorders
CPT/HCPCS: 97035; 97110; 97140; 97165; 97530; 97760

== ENCOUNTER 2021-11-18 10:56 | Outpatient (CLI) | payer MEDICARE, SELFPAY ==
--- NOTE | 2021-11-18 12:13 | NEURO ---
NCS and/or EMG Patient Report Ordering Doctor: Keanu Oliva DATE OF SERVICE: 11/18/21 Jose presents for electrodiagnostic testing of the left upper limb. He reports numbness and tingling in the left hand since June 2021 Electrodiagnostic findings: Left median motor nerve demonstrates prolonged distal latency with reduced amplitude and reduced conduction velocity. Normal left ulnar motor latency and amplitude with normal conduction across the elbow. Prolonged left median sensory latency. Absent left median palmar response normal left ulnar and radial sensory responses. On needle EMG, all muscles tested in the left upper limb showed no evidence of denervation with normal motor unit action potentials. Electrodiagnostic impression: This is an abnormal study in the left upper limb. 1. Electrodiagnostic findings demonstrate left-sided median mononeuropathy. This is consistent with an advanced left carpal tunnel syndrome
== END 2021-11-18 23:59 | disposition short-term general hospital (02) ==
LOC: PSN 10:59
PROVIDERS: Referring Provider Orthopaedic Surgery; Visit Provider Orthopaedic Surgery
DX: M47.22 Other spondylosis with radiculopathy, cervical region (principal); M48.02 Spinal stenosis, cervical region
CPT/HCPCS: 95886; 95910

== ENCOUNTER 2024-02-12 11:21 | Emergency (ER) | payer MEDICARE, SELFPAY ==
[2024-02-12 11:22] VITALS: BP 129/91; PULSE 96; RESP 16; TEMP 36.3; O2SAT 97
--- NOTE | 2024-02-12 11:37 | EDS_ITS ---
HPI <EVETTE Stuart - Last Filed: 02/12/24 12:24> History of Present Illness Chief Complaint: Lower Extremity Injury Narrative Narrative: 5-year-old male states over the last month he has had left lumbar pain that radiates down the buttock around the lateral thigh and down the posterior calf and into the top of his foot. He states his primary care doctor ordered x-rays and there was some abnormality in his femur. He is scheduled to have an MRI tomorrow. The pain worsened over the last 3 days without change in activity. No history of trauma. He takes Tylenol as needed. He has no numbness or tingling, saddle anesthesia, or bladder bowel incontinence. He states he had lumbar surgery about 9 years ago for nerve compression. [facility] <EVETTE Stuart - Last Filed: 02/12/24 12:24> [facility] Medical History (Updated 02/12/24 @ 12:04 by EVETTE Stuart) Abscess of right middle finger Arthritis Back problem Carpal tunnel syndrome Flexor tenosynovitis of finger High blood pressure Nerve compression Puncture wound with foreign body of right middle finger without damage to nail, sequela Home Medications hydrochlorothiazide 25 mg tablet 25 mg PO DAILY BP 08/11/16 [History Last Taken 03/08/19] latanoprost 0.005 % eye drops 1 drp EACH EYE QHS GLAUCOMA 08/11/16 [History Last Taken 03/07/19] losartan 100 mg tablet 100 mg PO DAILY BP 03/08/19 [History Last Taken 03/16/19 100 MG] hydrocodone-acetaminophen 5-325mg 5mg-325mg 1 tab PO Q6H PRN pain 2 days #8 tabs 02/12/24 [Rx Last Taken Unknown] Allergy/AdvReac Type Severity Reaction Status Date / Time No Known Allergies Allergy Verified 10/08/20 14:06 Family History (System 10/08/20 @ 14:06 by Ronda Calle) Other CVA (cerebral vascular accident) Hypertension Surgical History History of hand surgery History of knee surgery History of neck surgery History of surgery on arm Social History (System 10/08/20 @ 14:06 by Ronda Calle) Smoking Status: Former smoker alcohol intake: never substance use type: does not use additional social history: DOES NOT USE ASPIRIN DOES USE IBUPROFEN ROS <EVETTE Stuart - Last Filed: 02/12/24 12:24> ROS ED ROS Narrative Constitutional: Negative for fever, chills, malaise. : Negative for dysuria, hematuria or frequency. Neuro: Negative for motor/sensory dysfunction. Skin: Negative for rash, abscess, or wound. Musc: Negative for joint pain, swelling, trauma. EXAM <EVETTE Stuart - Last Filed: 02/12/24 12:24> Physical Exam Narrative Exam Narrative: CONST: Patient sitting in no acute distress. Head: Normocephalic atraumatic. NECK: Normal inspection. RESP: No respiratory distress, CTAB. CVS: Regular rate and rhythm, no murmur, no gallop. Back: Normal inspection, old healed midline lumbar scar. No midline tenderness. Tender over left lumbar paraspinals. SKIN: Color normal, no rash, warm, dry, intact. EXTREMITIES: Normal appearance, full ROM lower extremities, 5/5 strength in bilateral hip flexion, knee flexion/extension, DF/PF. Normal sensation. 2+ DP pulses. No edema or calf tenderness. NEURO: Alert and answering questions appropriately. PSYCH: Normal affect. Const Vital Signs: 02/12/24 11:22 02/12/24 12:28 Temperature 97.4 F L 97.6 F L Temperature Source Temporal Pulse Rate 96 85 Respiratory Rate 16 16 Blood Pressure 129/91 H 112/84 H Blood Pressure Mean 103 93 Pulse Ox 97 99 Oxygen Delivery Method Room Air <Dr. Wang Howard, - Last Filed: 02/12/24 14:31> Physical Exam Const Vital Signs: 02/12/24 11:22 02/12/24 12:28 Temperature 97.4 F L 97.6 F L Temperature Source Temporal Pulse Rate 96 85 Respiratory Rate 16 16 Blood Pressure 129/91 H 112/84 H Blood Pressure Mean 103 93 Pulse Ox 97 99 Oxygen Delivery Method Room Air MDM <EVETTE Stuart - Last Filed: 02/12/24 12:24> MDM MDM Narrative Medical decision making narrative: Patient has 1 month of left low back pain radiating down the left leg and radicular distribution. It worsened over the last 3 days. No trauma. Tylenol is not adequately managing his pain. He appears well and nontoxic and is afebrile with normal vital signs. He has no midline tenderness of back. He is tender over the left lumbar and gluteal muscles. Lower extremity MSPs and reflexes are intact. He has no red flag signs concerning for epidural abscess or cauda equina so does not need an emergent MRI. I reviewed outpatient x-rays of his lumbar spine which showed no acute findings. Left femur x-ray had an abnormality of unknown etiology. He states he scheduled for an MRI tomorrow of his lumbar spine and left femur. After IV morphine and Zofran his pain is better controlled. I prescribed a short course of [place] and he will follow-up for his outpatient MRIs tomorrow. He was discharged in stable condition. External records reviewed: 02/06/2024 [facility] imaging Lumbar spine x-ray shows degenerative changes with no acute findings. Left hip shows deformity of the mid femoral shaft with irregular contour of the medial periosteum/soft tissues. This could be a neoplastic process superimposed on a chronic posttraumatic deformity and recommended MRI. <Dr. Wang Howard, DO - Last Filed: 02/12/24 14:31> [facility] Treatment and Re-Evaluation :: I have personally performed a face to face assessment of the patient and have reviewed the CRYSTAL Note. I performed a substantive portion of the visit including all aspects of the following. My prince findings include: History: Patient presents with pain in his back and left leg that has been getting worse over the past 3 days. Patient states it is gradually getting worse. Patient states it is constant. Patient describes the pain as sharp and burning. Patient states he is scheduled for an MRI of his back and femur tomorrow. Patient states he is unable to tolerate the pain until then. Patient states his pain is relieved when he is able to sit up. Patient dates it is worse when he lays down flat and when he ambulates. Exam: Vital signs are stable. Patient is afebrile. Patient is in no acute distress. Musculoskeletal exam reveals tenderness over the left lumbar paraspinal muscles and sciatic notch. There is no bony crepitance or step-off noted. Range of motion was slightly limited in all motions of the lumbar spine secondary to pain. There is also mild pain over the left femur. There is no d eformity noted. There is good range of motion of the left hip and left knee. Pedal pulses are equal bilaterally. Sensation was intact to light touch bilaterally in the lower extremities. Is 5/5 bilaterally in the lower extremities. Medical Decision Making: Patient was advised that we would not be able to obtain an MRI today. Patient was given injection of morphine and Zofran here. Patient was given a prescription for a short course of Clearwater to take until he can get his MRI tomorrow. Patient and family understood and were agreeable with the plan. All questions were answered. Discharge Plan Triage Chief Complaint: Lower Extremity Injury ED Midlevel Provider: Zuleyka Gooden ED Provider: Wang Howard Dx/Rx/DC Orders Clinical Impression: Acute left lumbar radiculopathy, Low back pain Instructions: Back Basics: A Healthy Spine Prescriptions: New hydrocodone-acetaminophen 5-325 mg tablet 1 tab PO Q6H PRN (Reason: pain) 2 Days Qty: 8 0RF No Action latanoprost 1 DROP bottle 1 drp EACH EYE QHS Patient Comments: eye drops hydrochlorothiazide 25 MG tablet 25 mg PO DAILY Patient Comments: blood pressure losartan 100 MG tablet 100 mg PO DAILY Primary Care Provider: Promise Winters Referrals: Promise Winters PA [Primary Care Provider] - Activity Restrictions/Additional Instructions: You can take hydrocodone as needed every 6 hours for pain. Please follow-up for your scheduled MRIs. You can also ask your family doctor if you can take medication such as ibuprofen. Disposition Disposition: Home, Self Care Discharge Date/Time: 02/12/24 12:30
[2024-02-12] MEDS: Morphine 4 MG/ML Syringe IV (11:54)
[2024-02-12] MEDS: Ondansetron 4 MG/2 ML Vial IV (11:54)
[2024-02-12 12:28] VITALS: BP 112/84; PULSE 85; RESP 16; TEMP 36.4; O2SAT 99
== END 2024-02-12 12:30 | disposition home or self-care (01) ==
LOC: ED 12:14
PROVIDERS: Emergency Provider Emergency Medicine; Visit Provider Emergency Medicine
DX: M51.16 Intervertebral disc disorders with radiculopathy, lumbar region (principal); I10 Essential (primary) hypertension; Z79.899 Other long term (current) drug therapy; Z87.891 Personal history of nicotine dependence
CPT/HCPCS: 96374; 96375; 99283; J2405

== ENCOUNTER → 2024-02-13 | Outpatient (CLI) | payer MEDICARE, SELFPAY ==
[2024-02-07 12:33] VITALS: BMI 28.6
--- NOTE | 2024-02-13 15:42 | MRI_ITS ---
EXAM: MR CERVICAL SPINE WITHOUT AND WITH INTRAVENOUS CONTRAST CLINICAL INDICATION: CERVICAL SPONDOLITHESIS, UNSTEADY GAIT, PAIN IN L LEG, NO BACK OR NECK PAIN TECHNIQUE: Multiplanar and multisequence MR images of the cervical spine without and with intravenous contrast were performed. CONTRAST: IV 23ml Clariscan COMPARISON: MR Cervical Spine dated 02/26/2005 FINDINGS: VERTEBRAE: Partial loss of the cervical lordosis. Alignment of the vertebral bodies is otherwise unremarkable. Interval anterior fusion involving C3-C6. Element of contrast-enhancement noted along the anterior portion of the C7 vertebral body of uncertain significance. Normal craniocervical junction and cervicothoracic junction. No spondylolisthesis. SPINAL CORD: Unremarkable in signal and morphology. SOFT TISSUES: Normal. No prevertebral soft tissue swelling. LYMPH NODES: Normal. There is no cervical adenopathy. DISCS/SPINAL CANAL/NEURAL FORAMINA: C2-C3: Normal. Normal disc height and morphology. Normal spinal canal. Normal neuroforamina. C3-C4: Disc obscuration by surgical fusion. No spinal or neural foraminal stenosis. C4-C5: Disc fusion. No spinal or neural foraminal stenosis. C5-C6: Disc implants in place. No spinal stenosis. Narrowing of the neural foramina related to uncinate joint hypertrophy. C6-C7: C6 and C7 vertebral bodies. Previously fused. Normal caliber spinal canal. Mild narrowing of the left neural foramen related to bony hypertrophy. C7-T1: Normal. Normal disc height and morphology. Normal spinal canal. Normal neuroforamina. MRI/Spine Cervical W/WO Contrast IMPRESSION: 1. Extensive postoperative changes with anterior fusion of C3-C6. 2. No evidence of spinal stenosis. 3. Neural foraminal narrowing as described. 4. Normal cervical cord. Electronically Signed: Tomas Montoya MD at 15:34 EDT ,
--- NOTE | 2024-02-13 15:43 | MRI_ITS ---
EXAM: MR LUMBAR SPINE WITHOUT INTRAVENOUS CONTRAST CLINICAL INDICATION: UNSTEADY GAIT, PAIN IN L LEG, NO BACK OR NECK PAIN TECHNIQUE: Multiplanar and multisequence MR images of the lumbar spine without intravenous contrast. COMPARISON: No relevant prior studies available. FINDINGS: VERTEBRAE: Unremarkable. Vertebral body heights are preserved. Normal vertebral bodies and posterior elements. Normal alignment. No spondylolisthesis. There is preservation of the normal lumbar lordosis. SPINAL CORD: Unremarkable. Normal position and signal intensity of the conus medullaris. SOFT TISSUES: Exophytic partially included presumed cyst of 4.4 cm at the posterior right kidney, the kidneys are not fully included. Normal aortic caliber. DISCS/SPINAL CANAL/NEURAL FORAMINA: L1-L2: Unremarkable. Normal disc height and morphology. Normal spinal canal and lateral recesses. Normal neuroforamina. L2-L3: Unremarkable. Normal disc height and morphology. Normal spinal canal and lateral recesses. Normal neuroforamina. L3-L4: Unremarkable. Normal disc height and morphology. Normal spinal canal and lateral recesses. Normal neuroforamina. L4-L5: Normal disc height. Decreased disc T2 signal intensity. Moderate annular disc bulge and hypertrophic changes of the facet joints contribute to marked bilateral neural foraminal stenosis, greater on the left. The AP diameter of the spinal canal is mildly narrowed to 9 mm, transverse diameter mildly narrowed to 1.4 cm. L5-S1: Normal disc height. Decreased T2 disc signal intensity. Asymmetric left greater than right hypertrophic facet joints, moderate annular disc bulge, marked left and moderate right neural foraminal stenosis. The AP diameter of the canal is 1 cm, transverse diameter roughly well maintained at 1.7 cm. LIMITATIONS: Motion artifact on the axial images. MRI/Spine Lumbar (Routine) IMPRESSION: Moderate annular disc bulges and facet joint hypertrophic changes at L4-5 and L5-S1. Mild spinal canal narrowing. Moderate-severe left greater than right neural foraminal stenosis at these levels due to combined degenerative changes. Electronically Signed: Aline Martin MD at 8:10 EDT ,
[2024-02-13 16:07] LABS: CREATININE FINGERSTICK 1.6 mg/dL (0.70-1.30)
== END | disposition home or self-care (01) ==
PROVIDERS: Referring Provider Nurse Practitioner Adult Health; Visit Provider Nurse Practitioner Adult Health
DX: M47.12 Other spondylosis with myelopathy, cervical region (principal); R26.81 Unsteadiness on feet; Z13.89 Encounter for screening for other disorder
CPT/HCPCS: 72148; 72156; A9575

== ENCOUNTER → 2024-02-29 | Outpatient (CLI) | payer MEDICARE, SELFPAY ==
--- NOTE | 2024-02-29 14:19 | NEURO ---
NCS and/or EMG Patient Report Ordering Doctor: STEWART RODRIGUES DATE OF SERVICE: 02/29/24 Jose presents for electrodiagnostic testing of the lower limbs. He reports left-sided leg pain and numbness. Electrodiagnostic findings: Left peroneal motor nerve demonstrates normal distal latency with reduced amplitude and reduced conduction across the fibular head. Right peroneal motor nerve demonstrates normal distal latency, amplitude and conduction velocity. Left tibial and right tibial motor responses are within normal limits. Normal left sural latency. Normal right sural latency. Prolonged left superficial peroneal latency. Prolonged H reflex bilaterally. Needle EMG testing was performed in the lower limbs. 1+ fibrillations are noted in the left peroneus longus. No denervation noted in the lumbar paraspinals. Electrodiagnostic impression: This is an abnormal study in the lower limbs 1. 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 2. Electrodiagnostic findings are suggestive of mild sensory polyneuropathy. 3. There is no electrodiagnostic findings suggestive of lumbosacral radiculopathy. Multi Select Codes Neurology Neurology Interp Codes: 87950-41 Musc test done w/n test comp (interp) (2) and 94595-78 Nrv cndj test 9-10 studies (interp)
== END | disposition home or self-care (01) ==
LOC: PSN 12:20
PROVIDERS: Referring Provider Nurse Practitioner Adult Health; Visit Provider Nurse Practitioner Adult Health
DX: R26.81 Unsteadiness on feet (principal)
CPT/HCPCS: 95886; 95911

== ENCOUNTER 2024-04-12 08:01 | Inpatient (IN) | payer MEDICARE, SELFPAY ==
--- NOTE | 2024-04-03 10:51 | EKG12_ITS ---
Test Reason : PREOP Blood Pressure : / mmHG Vent. Rate : 083 BPM Atrial Rate : 083 BPM P-R Int : 172 ms QRS Dur : 086 ms QT Int : 382 ms P-R-T Axes : 070 -14 019 degrees QTc Int : 448 ms Normal sinus rhythm Inferior infarct , age undetermined Abnormal ECG Confirmed by Wolfgang Garcia ([id number]), general expeditor TERESE OBRIEN ([id number]) on 04/04/2024 5:56:12 AM Referred By: Keanu Oliva Confirmed By:Wolfgang Garcia
[2024-04-03 12:01] LABS: Absolute Neutrophil Count 3.9 X10^3/uL (2.0-7.7); Basophil# 0.02 X10^3/uL; Basophil% 0.3 % (0-1); Eosinophil# 0.19 X10^3/uL; Eosinophils% 3.1 % (0-5); Hematocrit 41.3 % (40-54); Hemoglobin 14.2 g/dL (13.0-16.5); Mean Corp Hgb Conc 34.4 g/dL (32-36); Mean Corpuscular Hgb 30.1 pg (27.0-32.0); Mean Corpuscular Volume 87.7 fL (80-94); Mean Platelet Vol. 10.2 fl (6.2-12.0); Monocyte# 0.44 X10^3/uL; Monocyte% 7.1 % (0-10); NRBC Flagged by Analyzer 0 % (0-5); Neutrophil # 3.89 X10^3/uL (2.7-7.7); Neutrophil % 63.2 % (47-70); Platelet Count 231 K/mm3 (150-450); RBC Distribution Width CV 12.5 % (11.6-14.6); RBC Distribution Width SD 39.8 fl (35.1-43.9); Red Blood Count 4.71 M/mm3 (4.6-6.2); White Blood Count 6.2 K/mm3 (4.4-11.0)
[2024-04-03 12:11] LABS: International Normalized Ratio 1.1; Prothrombin Time (Protime)PT. 14.1 SECONDS (11.7-14.9)
[2024-04-03 12:12] LABS: Partial Thromboplast Time 27.8 Seconds (24.1-36.2)
[2024-04-03 13:23] LABS: Anion Gap 7 (5-15); BUN 19 mg/dL (7-18); BUN/Creat Ratio 18.6 RATIO (10-20); Calcium,Total 9.1 mg/dL (8.5-10.1); Chloride 106 mmol/L (98-107); Creatinine, Serum 1.02 mg/dL (0.70-1.30); EST Glomerular Filtration Rate 77 mL/min (>60); Est Glom Filt Rate - Afr Amer 93 mL/min (>60); Glucose 222 mg/dL (74-106); Magnesium 1.8 mg/dL (1.6-2.6); Potassium 3.8 mmol/L (3.5-5.1); Sodium Level 139 mmol/L (136-145)
--- NOTE | 2024-04-05 08:10 | RAD_ITS ---
STUDY: X-RAY CHEST REASON FOR EXAM: Male, 68 years old. Preoperative exam TECHNIQUE: Frontal and lateral views of the chest COMPARISON: None. FINDINGS: The lungs are clear. There are no pleural effusions. There is no pneumothorax. The heart is normal in size. The visualized osseous structures are within normal limits. RAD/Chest PA and Lateral IMPRESSION: Clear lungs. Electronically Signed: Arley Alfaro MD at 16:48 EDT ,
[2024-04-09 13:44] LABS: Hemoglobin A1c 6.5 % (3.8-5.6)
[2024-04-12] VITALS (13 sets, daily range): BP systolic 85–137; BP diastolic 55–95; PULSE 55–82; RESP 15–18; TEMP 36.1–36.9; O2SAT 97–100; BMI 34.4
--- NOTE | 2024-04-12 08:26 | PCM.PRE.AN2 ---
ASA Classification* ASA Classification ASA Classification: 3 Assessment & Plan Anesthesia* Anesthesia Assessment Anesthesia Assessment: Discussed sedation and/or anesthesia options, risks, benefits, and alternatives with patient/parents/legal guardian/POA. Questions invited. The patient/parents/legal guardian/POA seems to understand and agrees to proceed with anesthesia plan. Reviewed the physical assessment, medical history, allergy history and patient home medications list prior to surgery/procedure/anesthetic and documented any changes. Performed airway and anesthesia risk assessments. 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 When Was Last Pacemaker Check QUESTION #4 FULL TEXT: You/Your Family Experience fever (hyperthermia) with Anesthesia Last Oral Intake Last Oral intake: Last Oral Intake NPO since Meds taken in AM with sips of water? Meds patient instructed to take am of surgery PONV PONV - deputy sheriff court services: PONV - deputy sheriff court services Female No 03/29/24 08:00 HX of Motion Sickness No 03/29/24 08:00 HX of N/V After Surgery No 03/29/24 08:00 Non-Smoker Yes 03/29/24 08:00 Duration of Surgery greater Yes 03/29/24 08:00 than 60 minutes Number of Risk Factors 2 03/29/24 08:00 PONV Score Moderate Risk 03/29/24 08:00 Height & Weight Height & Weight: Anesthesia: Height & Weight Height 5 ft 4 in 04/11/24 09:25 Weight: 112.491 kg 04/11/24 09:25 Respiratory Assessment Respiratory Assessment - deputy sheriff court services: Respiratory Tract Infection Hx - deputy sheriff court services Hx Respiratory Tract Infection No 03/29/24 08:00 STOP Sleep Apnea STOP Sleep Apnea - deputy [employer] services: STOP Sleep Apnea - deputy sheriff court services Hx Hypertension Yes: CONTROLLED WITH MEDS 03/29/24 08:00 Hx Sleep Apnea Yes: DOESN'T USE MACHINE 03/29/24 08:00 CPAP No 03/29/24 08:00 BIPAP No 03/29/24 08:00 Do you snore loudly (louder than talking or can be heard Do you often feel tired/ fatigued/ sleepy during daytime? Has anyone observed you stop breathing during sleep? STOP Results Positive 03/29/24 08:00 QUESTION #5 FULL TEXT : Do you snore loudly (louder than talking or can be heard through closed doors)? Tobacco Use History Tobacco Use History - deputy sheriff court services: Tobacco Use History - deputy sheriff court services Tobacco Use Smoking Status Former smoker 03/29/24 08:00 Hx Tobacco Use No 03/29/24 08:00 Years Smoking Packs Smoked per Day Smoking Cessation Date was No - quit smoking greater 03/29/24 08:00 within the last 15 years than 15 years ago Hx Smoking Cessation Date Hx Smoking Cessation Counseling Hematologic Medial History Hematologic Hx - deputy sheriff court services: Hematologic Medical Hx - certified residential medication aide Hx of Blood Transfusion No 03/29/24 08:00 Hx of Transfusion in last 3 No 03/29/24 08:00 Months Date of Last Transfusion (if within last 3 months) Ever experience any problems No 03/29/24 08:00 with transfusion(s)? Specify any problems Hx of Preganancy in last 3 N/A 03/29/24 08:00 Months Nurse Filling Out Transfusion [id number] 03/29/24 08:00 & Questions: Date: 03/29/24 03/29/24 08:00 Time: 08:05 03/29/24 08:00 Patient unable to answer at this time (ie. confused, unrespo /Reproduction History /Reproductive History - deputy sheriff court services: /Reproductive Hx- deputy sheriff court services Hx Now Gestational Age (in weeks): EDC: Hx Hx Para Hx Section SAB Active Medications Active Medications: Current Medications Generic Name Dose Route Start Last Admin Trade Name Freq PRN Reason Stop Dose Admin Acetaminophen 1,000 mg 04/12/24 10:10 Acetaminophen 500 Mg Tablet PO 04/12/24 10:11 X1 ONE Magnesium Sulfate 2 gm/ 104 mls @ 208 mls/hr 04/12/24 10:10 Dextrose IV 04/12/24 10:39 X1 ONE Cefazolin Sodium 2 gm/ Sodium 110 mls @ 150 mls/hr 04/12/24 10:10 Chloride IV 04/12/24 10:53 PREOP ONE Lactated Ringer's 1,000 mls @ 15 mls/hr 04/12/24 08:30 IV .Q48H LAURE Insulin Human Lispro 1 - 6 unit 04/12/24 10:10 Insulin Lispro 100 Unit/Ml Insuln.Pen SC 04/12/24 18:00 Q4H PRN PRN BG>/= 180, SEE PROTOCOL Protocol Anesthesia Focused Assessment* Airway Assessment Mouth opens: >3 cm Mallampati Score: II Focused Labs Anesthesia Preop lab: CBC WBC 6.2 K/mm3 (4.4-11.0) 04/03/24 11:30 RBC 4.71 M/mm3 (4.6-6.2) 04/03/24 11:30 Hgb 14.2 g/dL (13.0-16.5) 04/03/24 11:30 Hct 41.3 % (40-54) 04/03/24 11:30 Plt Count 231 K/mm3 (150-450) 04/03/24 11:30 CHEMISTRY Potassium 3.8 mmol/L (3.5-5.1) 04/03/24 11:30 Sodium 139 mmol/L (136-145) 04/03/24 11:30 Magnesium 1.8 mg/dL (1.6-2.6) 04/03/24 11:30 BUN 19 mg/dL (7-18) H 04/03/24 11:30 Creatinine 1.02 mg/dL (0.70-1.30) 04/03/24 11:30 Glucose 222 mg/dL (74-106) H 04/03/24 11:30 COAG PT 14.1 SECONDS (11.7-14.9) 04/03/24 11:30 Review of Systems (Anesthesia) ROS Narrative System reviewed and no additional complaints, except as documented. [facility] Medical History Wears glasses Wears dentures High cholesterol Back pain Heartburn Sleep apnea History of pain when walking Puncture wound with foreign body of right middle finger without damage to nail, sequela Nerve compression Flexor tenosynovitis of finger Abscess of right middle finger High blood pressure Carpal tunnel syndrome Back problem Arthritis Home Medications ?Medication ?Instructions ?Recorded ?Last Taken ?Type hydrochlorothiazide 25 mg tablet 25 mg PO DAILY BP 08/11/16 03/08/19 History latanoprost 0.005 % eye drops 1 drp EACH EYE QHS GLAUCOMA 08/11/16 03/07/19 History losartan 100 mg tablet 100 mg PO DAILY BP 03/08/19 03/16/19 History 100 MG hydrocodone-acetaminophen 5-325mg 1 tab PO Q6H PRN pain 2 days #8 02/12/24 Unknown Rx 5mg-325mg tabs atorvastatin 20 mg tablet 20 mg PO QPM CHOLESTEROL 03/29/24 Unknown History gabapentin 600 mg tablet 600 mg PO TID PAIN 03/29/24 Unknown History omeprazole 20 mg capsule,delayed 20 mg PO HEARTBURN 03/29/24 Unknown History release potassium chloride 20 mEq 20 meq PO BID PRESCRIBED BY DOCTOR 03/29/24 Unknown History tablet,extended release(part/cryst) Allergy/AdvReac Type Severity Reaction Status Date / Time No Known Allergies Allergy Verified 03/29/24 07:55 Family History Other CVA (cerebral vascular accident) Hypertension Surgical History History of hand surgery History of surgery on arm History of knee surgery History of neck surgery Social History Smoking Status: Former smoker alcohol intake: never substance use type: does not use additional social history: DOES NOT USE ASPIRIN DOES USE IBUPROFEN
[2024-04-12] MEDS: Acetaminophen 500 MG Tablet 1000 MG PO ×2 (09:01→20:17)
--- NOTE | 2024-04-12 09:10 | RAD_ITS ---
PROCEDURE: Fluoroscopic imaging for L4-L5 and L5-S1 level fusion. DATE OF EXAMINATION: April 12, 2024. INDICATION: Male, 68 years old. Chronic low back pain. FLUOROSCOPY TIME (if supplied): (2 minutes and 45 seconds) minutes/seconds. 106.6 mGy. 5 images were submitted. RAD/Lumbar Spine 2 or 3 Views IMPRESSION: Intraoperative fluoroscopic services provided for L4-L5 and L5-S1 level fusion. Electronically Signed: Hoang Torres MD at 10:39 EDT ,
[2024-04-12] MEDS: Lactated Ringers 1,000 ML 15 ML IV (09:11)
[2024-04-12] MEDS: Magnesium 2 GM for ERAS IV (09:13)
[2024-04-12 09:46] LABS: Bedside Glucose 146 mg/dL (74-106)
--- NOTE | 2024-04-12 10:03 | PCM.OPRPT ---
Report of Operation Date of Procedure: 04/12/24 Description of Surgical Findings:: Preop diagnosis: 1. Lumbar stenosis, L4-5, L5-S1 with spondylosis 2. Lumbar degenerative disc disease L4-5, L5-S1 Postop diagnosis: 1. Lumbar stenosis, L4-5, L5-S1 with spondylosis 2. Lumbar degenerative disc disease L4-5, L5-S1 Procedures performed: 1. L4-5 posterior lumbar interbody fusion 2. L5-S1 posterior lumbar interbody fusion 3. Insertion of intervertebral biomechanical device x1 4. Structural allograft for spinal fusion 5. L4 bilateral laminectomies, foraminotomies, facetectomies, decompression of bilateral nerve roots 6. L5 bilateral laminectomies, foraminotomies, facetectomies, decompression of bilateral nerve roots 7. S1 bilateral laminectomies, foraminotomies, facetectomies, decompression of bilateral nerve roots 8. L4-5, L5-S1 posterolateral fusion 9. Pedicle screw fixation 10. Local autograft for spinal fusion 11. Neuro monitoring bilateral upper and bilateral lower extremities Statement of medical necessity: The patient is a 68-year-old male with intractable back and leg pain. Image studies confirm the above diagnoses. They have failed conservative treatments to include medications physical therapy and injections and have opted for operative intervention understanding the risk to include but not limited to infection, bleeding, damage to nerves arteries and veins, possibility of spinal fluid leak, nonunion, hardware failure, continued pain, need for further surgery, deep vein thrombosis, pulmonary embolism, heart attack, risk of stroke or . Description of the procedure: The patient was identified in the preoperative holding area. There they received preoperative IV antibiotics and was then transferred to the operative suite. Once in the operative suite after general endotracheal anesthesia was established, the patient was positioned prone on the [facility] operating table. All bony prominences were padded accordingly. The lumbar spine was prepped and draped in a standard fashion. Bear hugger's were not turned on until the drapes were placed and sealed with Ioban. A midline incision was made and taken down to the fascia. The fascia was divided and subperiosteal dissection was taken down to the level of the transverse processes and sacral ala of L4, L5 and S1 bilaterally. Deep retractors were placed. A bone scalpel was used to make cuts in the lamina and then a series of rongeurs and Kerrisons were used removing the spinous process and lamina of L4 and L5 and S1. Then facetectomies of greater than 50% were performed as well as foraminotomies at L4-5 and L5-S1 bilaterally decompressing the bilateral nerve roots. Given the severity of the stenosis I needed to perform wide bilateral laminectomies and near complete facetectomies in order to decompress the neural elements. Disc created instability necessitating the fusion. I then proceeded with interbody fusion. The nerve roots and dura were identified and retracted medially. A knife was utilized to perform an annulotomy at L4-5. Endplate elevators, curettes, and pituitaries were utilized to remove disc material. Endplates were prepared with a rasp. An appropriate sized intervertebral peek cage device measuring 12mm was packed with structural allograft and impacted into position completing the posterior lumbar interbody fusion at the L4-5 level. The same steps were repeated L5-S1. A knife was utilized to perform an annulotomy at L5-S1. Endplate elevators, curettes, and pituitaries were utilized to remove disc material. Endplates were prepared with a rasp. An appropriate sized intervertebral peek cage device measuring 10mm was packed with morselized cancellous allograft and impacted into position completing the posterior lumbar interbody fusion at the L5-S1 level. I then proceeded with pedicle screw fixation. Starting points were found at the junction of the superior articular process and transverse processes and sacral ala of L4, L5, and S1 bilaterally. A power bur was used for the starting points. Pedicle probes were placed bilaterally and then 6.5x55mm screws were placed bilaterally at L4 and L5 and 6.5x40mm screws were placed bilaterally at S1. The screws were tested with intraoperative neurophysiologic monitoring and tested within normal limits. Connector rods were applied and secured with set screws. I then proceeded with the posterolateral fusion. This was accomplished by decorticating the transverse processes bilaterally at L4 and L5 and the sacral ala bilaterally at S1. This decorticated bone was then bridged with local autograft from the decompression as well as morselized cancellous allograft completing the posterolateral fusion of the L4-5 and L5-S1 levels. The incision was thoroughly irrigated. Tisseel was placed over the dura as a hemostatic agent. The fascia was closed with #1 Vicryl, subcutaneous with 2-0 Vicryl and skin with 2-0 nylon. A sterile dressing was applied with 4 x 4's ABD and tape. Sponge instrument and needle counts were correct at the end of the case. Neurophysiologic monitoring was maintained at baseline throughout the duration of the case. The patient was extubated and taken to the PACU without incident Surgeon: Keanu Oliva Type of Anesthesia: General Estimated Blood Loss (mL): 610cc Fluids Replaced: 1800cc Grafts/Implants Used: Unified spine Complications None Admit VTE Documentation VTE Present on Admission: No
--- NOTE | 2024-04-12 10:15 | PCM.PN.ORT ---
Subjective Subjective Seen and examined postoperatively. Resting comfortably. Pain controlled. No complaints Objective Data Objective Data Vital Signs: Vital Signs Temp Pulse Resp BP Pulse Ox O2 Del Method 98.2 F 73 18 116/66 100 Room Air 04/12/24 08:54 04/12/24 08:54 04/12/24 08:54 04/12/24 08:54 04/12/24 08:54 04/12/24 08:54 Oxygen Delivery Method Room Air Weight: 243 lb 12.8 oz Body Mass Index (BMI) 34.4 Lab / Micro Data 04/13/24 06:23 04/13/24 06:23 Labs: Laboratory Results - last 24 hr 04/12/24 08:57: POC Glucose 146 H Micro: Microbiology 04/03/24 11:30 Swab (Method) Nasal Screen MRSA/MSSA - Final Physical Exam Const alert, oriented x3 and no apparent distress General Appearance: cooperative, comfortable and well kempt HEENT normocephalic and head/scalp atraumatic Eyes EOMs intact bilaterally and conjunctivae normal Neck full ROM General: normal visual inspection Chest inspection of chest normal and palpation of chest normal Resp normal respiratory effort and normal air movement Cardio regular rate, regular rhythm and peripheral pulses 2+ throughout GI soft to palpation, non-tender and non-distended Back/Spine Back/Spine Narrative: Dressing clean dry and intact Cervical Spine: cervical ROM normal Thoracic Spine / Upper Back: normal to inspection Lumbar Spine / Lower Back: normal to inspection Extremity normal to inspection, full ROM, normal capillary refill, no joint enlargement, no clubbing, cyanosis or edema and no calf tenderness Skin no rashes or lesions noted General Skin Exam: no breakdown Neuro oriented x3, CN's II-XII intact bilaterally, moves all extremities, no focal motor deficits, no sensory deficits noted and deep tendon reflexes 2+ bilaterally Motor Exam: strength 5/5 throughout and muscle tone normal throughout Assessment & Plan Assessment/Plan (1) Lumbar stenosis: PLAN: Okay to admit See orders Discharge planning, likely home tomorrow
--- NOTE | 2024-04-12 10:17 | PCM.DC.SUM ---
Providers Date of Admission: 04/12/24 Primary Care Physician: EVETTE Trejo Reason For Visit: Post Lum Interbody Fusion Rosalio Two Level Diagnosis Discharge Diagnosis (1) Lumbar stenosis: Status: Acute Code(s): M48.061 - Spinal stenosis, lumbar region without neurogenic claudication Plan: Okay to admit See orders Discharge planning, likely home tomorrow Medications at Discharge Home Medications latanoprost 0.005 % eye drops 1 drp EACH EYE QHS GLAUCOMA 08/11/16 losartan 100 mg tablet 100 mg PO DAILY BP 03/08/19 atorvastatin 20 mg tablet 20 mg PO QPM CHOLESTEROL 03/29/24 gabapentin 600 mg tablet 600 mg PO TID PAIN 03/29/24 omeprazole 20 mg capsule,delayed release 20 mg PO Q8H PRN HEARTBURN 03/29/24 potassium chloride 20 mEq tablet,extended release(part/cryst) 20 meq PO BID PRESCRIBED BY DOCTOR 03/29/24 chlorthalidone 25 mg tablet 25 mg PO DAILY htn 04/12/24 hydrocodone-acetaminophen 5-325mg 5mg-325mg 1 tab PO Q6H 7 days #28 tabs 04/12/24 Hospital Course Operations - (L4-5 and L5-S1 posterior lumbar interbody fusion, decompression, posterior spinal fusion with instrumentation) Summary of Care Provided Minutes Spent on Discharge: 15 Hospital Course: The patient is a 68-year-old male who underwent L4-5 and L5-S1 fusion on 04/12/2024. He was subsequently admitted. The hospitalist was consulted for medical management. The patient progressed well. His pain was controlled but was progressing slowly with PT and rehab was recommended. No significant medical issues were reported. He was subsequently discharged on to follow-up with Dr. Oliva in 3 weeks Physical Exam Const alert, oriented x3 and no apparent distress General Appearance: cooperative, comfortable and well kempt Neck full ROM General: normal visual inspection Resp normal respiratory effort and normal air movement Effort and Inspection: able to speak in complete sentences Cardio regular rate and peripheral pulses 2+ throughout GI soft to palpation, non-tender and non-distended Back/Spine Back/Spine Narrative: Dressing clean dry and intact. Incision well-approximated with interrupted sutures in place. No tenderness erythema drainage or fluctuance Cervical Spine: cervical ROM normal Thoracic Spine / Upper Back: normal to inspection Lumbar Spine / Lower Back: normal to inspection Extremity normal to inspection, full ROM, normal capillary refill, no joint enlargement, no clubbing, cyanosis or edema and no calf tenderness Skin no rashes or lesions noted General Skin Exam: no breakdown Neuro oriented x3, CN's II-XII intact bilaterally, moves all extremities, no focal motor deficits, no sensory deficits noted and deep tendon reflexes 2+ bilaterally Motor Exam: strength 5/5 throughout and muscle tone normal throughout Weight / BMI Weight Weight: 243 lb 12.8 oz Body Mass Index (BMI) 34.4 ABG / Lab / Microbiology Data 04/15/24 08:15 04/15/24 08:15 Laboratory: Laboratory Results - last 24 hr 04/12/24 08:57: POC Glucose 146 H Microbiology: Microbiology 04/03/24 11:30 Swab (Method) Nasal Screen MRSA/MSSA - Final D/C Instructions Discharge Diet: No restrictions Additional Activity Instructions: No repetitive bending twisting or lifting greater than 5 pounds. Wear back brace at all times. Call your doctor if your incision/area has: Continuous Slow Oozing, Sudden Increased Bleeding, Increased Pain/ Swelling, Increased Redness, Foul Smelling Discharge and Swelling at the incision site Call your doctor if you observe: Fever of 101 or Higher, Coldness, Increased Pain, Numbness or Tingling, Change in Color, Inability to urinate, Inability to have a bowel movement, Using more than 1 pad per hour, Shortness of breath, Dizziness, Fainting spells, Swelling in the ankles, Chest pain, Prolonged hiccupping, Increased palpitations (irregular heartbeat), Calf discomfort and Uncontrolled pain Cleanse incision/area with: Do not get Incision Wet and Keep Dressing Clean & Dry Additional Dressing/Incision Instructions: Change dressing daily with gauze and tape Additional Instructions: 1. During your procedure, you received sedation through your IV. Please follow these instructions for the next 24 hours: Do not drive a motor vehicle, do not drink any alcoholic beverages, and do not sign any legal documents or make personal or business decisions. A responsible adult should stay with you at least 6 hours after the procedure. 2. Keep your surgical site/incision clean and the dressing dry and intact. You may use an ice pack at the surgical site to reduce any swelling or discomfort. 3. Monitor the incision site for any signs or symptoms of infection. Watch for redness, excessive swelling or drainage, or continued pain at the incision site after 3 days. Contact your physician immediately for a fever, chills or a temperature of 101.5? F or greater. 4. Take your medication exactly as prescribed by your physician. Do not attempt to wean yourself off any of your medications even though your pain is improving. This process needs to be carefully monitored by your doctor. Take any antibiotics prescribed exactly as directed and until they are gone. 5. Avoid stretching, bending, pulling, twisting or any sudden movements. Do not bend or twist at the waist. Wear back brace at all times 6. No lifting greater than 5 pounds. 7. Do not operate a motor vehicle, equipment or a power tool while taking pain medication 8. Do not have any manipulation done by a chiropractor or any other physician without first consulting with the surgeon 9. Please contact our office if you are even scheduled for a CT scan or an MRI. 10. Please call us if you have any questions, problems or concerns. Please Follow Up With: Keanu Oliva DO When: 3 weeks Meaningful Use Info Meaningful Use Meaningful Use Diagnoses (Choose all that apply): None applicable Ischemic Stroke Statin Dosing Therapy Reference: STATIN DOSE THERAPY REFERENCE: * Patients > 75 years receive moderate or high dose statin therapy. * Patients 75 years or YOUNGER should receive HIGH intensity statin dose unless contraindicated. You will be required to document reason for non-treatment if statin daily dose does not meet guidelines. HIGH DOSE STATIN THERAPY DAILY Atorvastatin > than or = to 40 mg Rosuvastatin > than or = to 20 mg Amlodipine + Atorvastatin > than or = to 2.5/40 mg Ezetimibe + Simvastatin 10/80 mg Simvastatin 80mg Discharge Plan Admission Admit Date/Time: 04/12/24 08:01 Attending Provider: Keanu Oliva Primary Care Provider: Promise Winters Consulting Providers: Nico Sullivan; Odilon Cruz Instructions Additional Instructions / Restrictions: 1. During your procedure, you received sedation through your IV. Please follow these instructions for the next 24 hours: Do not drive a motor vehicle, do not drink any alcoholic beverages, and do not sign any legal documents or make personal or business decisions. A responsible adult should stay with you at least 6 hours after the procedure. 2. Keep your surgical site/incision clean and the dressing dry and intact. You may use an ice pack at the surgical site to reduce any swelling or discomfort. 3. Monitor the incision site for any signs or symptoms of infection. Watch for redness, excessive swelling or drainage, or continued pain at the incision site after 3 days. Contact your physician immediately for a fever, chills or a temperature of 101.5? F or greater. 4. Take your medication exactly as prescribed by your physician. Do not attempt to wean yourself off any of your medications even though your pain is improving. This process needs to be carefully monitored by your doctor. Take any antibiotics prescribed exactly as directed and until they are gone. 5. Avoid stretching, bending, pulling, twisting or any sudden movements. Do not bend or twist at the waist. Wear back brace at all times 6. No lifting greater than 5 pounds. 7. Do not operate a motor vehicle, equipment or a power tool while taking pain medication 8. Do not have any manipulation done by a chiropractor or any other physician without first consulting with the surgeon 9. Please contact our office if you are even scheduled for a CT scan or an MRI. 10. Please call us if you have any questions, problems or concerns. Discharge Orders/Prescriptions Prescriptions: New hydrocodone-acetaminophen 5-325 mg tablet 1 tab PO Q6H 7 Days Qty: 28 0RF Continued latanoprost 1 DROP bottle 1 drp EACH EYE QHS Patient Comments: eye drops losartan 100 MG tablet 100 mg PO DAILY atorvastatin 20 mg tablet 20 mg PO QPM gabapentin 600 mg tablet 600 mg PO TID potassium chloride 20 mEq tablet,ER particles/crystals 20 meq PO BID omeprazole 20 mg capsule,delayed release(DR/EC) 20 mg PO Q8H PRN (Reason: HEARTBURN) Patient Comments: PT STATES HE ONLY TAKES PRN chlorthalidone 25 mg tablet 25 mg PO DAILY Other Ambulatory Orders: 12 Lead EKG (Routine) Timeframe: [id number] Location: None Selected Ordered By: Dr. Keanu Oliva Referrals / Follow Up: Keanu Oliva DO [Med Staff - Active Staff] - Promise Winters PA [Primary Care Provider] - Disposition Disposition (needs filled in before D/C Order can be placed): Inpatient Rehab Unit/Facility
[2024-04-12] MEDS: Cefazolin 2 GM in 0.9% Normal Saline (100mL Bag) 100 ML IV (10:37)
[2024-04-12] MEDS: Heparin 10,000 UNITS/10 ML Vial 10000 UNITS (11:22)
[2024-04-12] MEDS: THROMBIN (RECOMBINANT) 20,000 UNIT VIAL 20000 UNIT TOPICAL (11:22)
[2024-04-12] MEDS: Bupivacaine 0.25% 30 ML Vial (16:06)
--- NOTE | 2024-04-12 17:02 | PCM.POST.ANE ---
Anesthesia: Postop Eval I Current Vital Signs Temperature: 207.3 F Pulse Rate: 57 Blood Pressure: 85/64 Respiratory Rate: 16 Pulse Ox: 98 Assessment Airway patent: Yes Spontaneous unlabored respirations: Yes Mental status: Awake and Calm nausea: No Vomiting: No Anesthesia Complication: No Fluid Hydration Crystalloid volume administer (ml): 1,800 Blood Product volume administered (ml): 233 Total IV fluid infused: 2,033 Progress Note Anesthesia document: Postop Eval 1 completed: Yes
[2024-04-12 17:24] LABS: Bedside Glucose 182 mg/dL (74-106)
[2024-04-12] MEDS: Insulin Lispro 100 UNIT/ML INSULN.PEN SC (17:26)
--- NOTE | 2024-04-12 17:38 | POSTOPAN2_ITS ---
Anesthesia Postop Eval I Sum Postop Eval Completion status Anesthesia document: Postop Eval 1 completed: Yes Anesthesia Postop Eval I Summary Anesthesia Postop Eval I Summary: Anesthesia Postop Eval I: Assessment Summary Airway patent Yes 04/12/24 17:03 RETAIL CASHIER [email or web address] Spontaneous unlabored Yes 04/12/24 17:03 RETAIL CASHIER ASSOCIATE.MDOT respirations Mental status Awake,Calm 04/12/24 17:03 RETAIL CASHIER ASSOCIATE.MDOT nausea No 04/12/24 17:03 RETAIL CASHIER ASSOCIATE.MDOT Vomiting No 04/12/24 17:03 RETAIL CASHIER [email or web address].[email or web address] Anesthesia Postop Eval I: Fluid Summary Crystalloid volume administer 1,800 04/12/24 17:03 RETAIL CASHIER ASSOCIATE.MDOT (ml) Colloids volume administered ( ml) Blood Product volume 233 04/12/24 17:03 RETAIL CASHIER ASSOCIATE.MDOT administered (ml) Total IV fluid infused 2,033 04/12/24 17:03 RETAIL CASHIER ASSOCIATE.MDOT Anesthesia Postop Eval I: Summary Notes Anesthesia Complication No 04/12/24 17:03 RETAIL CASHIER ASSOCIATE.MDOT Anesthesia Complication Comment: Post-operative progress note Anesthesia: Postop Eval II Evaluation Mental status: Awake Pain Level: 0 nausea: No Vomiting: No Complications Anesthesia Complication: No
--- NOTE | 2024-04-12 17:38 | PCM.POSTANE2 ---
Anesthesia Postop Eval I Sum Postop Eval Completion status Anesthesia document: Postop Eval 1 completed: Yes Anesthesia Postop Eval I Summary Anesthesia Postop Eval I Summary: Anesthesia Postop Eval I: Assessment Summary Airway patent Yes 04/12/24 17:03 ORGAN PIPE FINISHER.MDOT Spontaneous unlabored Yes 04/12/24 17:03 ORGAN PIPE FINISHER.MDOT respirations Mental status Awake,Calm 04/12/24 17:03 ORGAN PIPE FINISHER.MDOT nausea No 04/12/24 17:03 ORGAN PIPE FINISHER.MDOT Vomiting No 04/12/24 17:03 ORGAN PIPE FINISHER.MDOT Anesthesia Postop Eval I: Fluid Summary Crystalloid volume administer 1,800 04/12/24 17:03 ORGAN PIPE FINISHER.MDOT (ml) Colloids volume administered ( ml) Blood Product volume 233 04/12/24 17:03 ORGAN PIPE FINISHER.MDOT administered (ml) Total IV fluid infused 2,033 04/12/24 17:03 ORGAN PIPE FINISHER.MDOT Anesthesia Postop Eval I: Summary Notes Anesthesia Complication No 04/12/24 17:03 ORGAN PIPE FINISHER.MDOT Anesthesia Complication Comment: Post-operative progress note Anesthesia: Postop Eval II Evaluation Mental status: Awake Pain Level: 0 nausea: No Vomiting: No Complications Anesthesia Complication: No
[2024-04-12] MEDS: oxyCODONE 5 MG Tablet PO ×2 (18:36→22:16)
[2024-04-12] MEDS: Potassium Chloride Oral Tablet 20 MEQ PO (18:36)
[2024-04-12] MEDS: Lactated Ringers 1,000 ML 100 ML IV (18:37)
[2024-04-12] MEDS: Cefazolin 1 GM/50 ML BAG IV (18:44)
--- NOTE | 2024-04-12 19:33 | PCM.CONS.GEN ---
Assessment & Plan Assessment/Plan (1) Lumbar stenosis: PLAN: Plan 1. Perioperative management of lumbar spinal stenosis with spondylosis and degenerative disc disease L4-5, L5-S1. Patient is being admitted after elective spine surgery on [facility]. He had L4-5 and L5-S1 posterior lumbar interbody fusion with L4, L5 and S1 bilateral laminectomies, and decompression of bilateral nerve root on 04/12/2024. Patient has pain 4-5/10 intensity. Pain controlled. Continue gabapentin. Has Cortez catheter, can be discontinued tomorrow morning. Had bowel movement today. PT and OT ordered. DVT prophylaxis as per discretion of spine surgeon. Bilateral SCDs. Monitor CBC and BMP tomorrow AM. 2. Hypertension: Blood pressure is in normal range. It was low probably during surgery low 90s. Patient on chlorthalidone and losartan and potassium continued. 3. Dyslipidemia: Patient on atorvastatin continued 4. Glaucoma: On latanoprost. HPI Consult Data Date of Consult: 04/12/24 HPI Narrative Reason for Consultation: Perioperative management after lumbar laminectomy/decompressive surgery HPI Narrative: DON LIM, is a 68 M who was admitted after elective surgery by Dr. Keanu Oliva. Patient has a history of chronic lumbar spinal stenosis L4-5 L5 1 with spondylosis and degenerative disc disease. He had L4-5 and L5-S1 posterior lumbar interbody fusion with L4, L5 and S1 bilateral laminectomies, and decompression of bilateral nerve root. Patient denies chronic heart disease or lung disease. He used to smoke cigarettes 1 to 2/day more than 30 to 40 years ago, light ex-smoker. Patient has degenerative arthritis, hypertension and dyslipidemia. At present, patient denies chest pain, shortness of breath, dizziness. Patient has Cortez catheter and clear urine in the urinal bag. Had a bowel movement in the morning today. [facility] Medical History Wears glasses Wears dentures High cholesterol Back pain Heartburn Sleep apnea History of pain when walking Puncture wound with foreign body of right middle finger without damage to nail, sequela Nerve compression Flexor tenosynovitis of finger Abscess of right middle finger High blood pressure Carpal tunnel syndrome Back problem Arthritis Home Medications ?Medication ?Instructions ?Recorded ?Last Taken ?Type latanoprost 0.005 % eye drops 1 drp EACH EYE QHS GLAUCOMA 08/11/16 04/11/24 07:30 History losartan 100 mg tablet 100 mg PO DAILY BP 03/08/19 04/12/24 06:00 History atorvastatin 20 mg tablet 20 mg PO QPM CHOLESTEROL 03/29/24 04/11/24 19:30 History gabapentin 600 mg tablet 600 mg PO TID PAIN 03/29/24 04/12/24 06:00 History omeprazole 20 mg capsule,delayed 20 mg PO Q8H PRN HEARTBURN 03/29/24 Unknown History release potassium chloride 20 mEq 20 meq PO BID PRESCRIBED BY DOCTOR 03/29/24 04/11/24 19:30 History tablet,extended release(part/cryst) chlorthalidone 25 mg tablet 25 mg PO DAILY htn 04/12/24 04/11/24 07:30 History hydrocodone-acetaminophen 5-325mg 1 tab PO Q6H 7 days #28 tabs 04/12/24 Unknown Rx 5mg-325mg Allergy/AdvReac Type Severity Reaction Status Date / Time No Known Allergies Allergy Verified 04/12/24 08:44 Family History Other CVA (cerebral vascular accident) Hypertension Surgical History History of hand surgery History of surgery on arm History of knee surgery History of neck surgery Social History Smoking Status: Former smoker alcohol intake: never substance use type: does not use additional social history: DOES NOT USE ASPIRIN DOES USE IBUPROFEN ROS ROS Narrative Constitutional: Reports fatigue and weakness. No fever. HEENT: Reports systems reviewed and no addt'l complaints, except as documented Respiratory/Chest: No acute shortness of breath or respiratory distress or wheezing. CVS: No chest pain pressure or tightness. Denies CAD/FL on chronic heart disease Gastrointestinal: Denies coffee ground emesis, hematemesis or vomiting Genitourinary: Denies burning urination or new urinary tract symptoms Musculoskeletal: Chronic back pain with degenerative arthritis, disc disease No acute injury Neurologic: Denies seizure-like symptoms. skin: No ulcer. No rash Endocrinology: Reports systems reviewed and no addt'l complaints, except as documented Hematologic/Lymphatic: Reports systems reviewed and no addt'l complaints, except as documented Rest 14 ROS are negative except as mentioned in HPI Physical Exam Narrative General: Alert, Oriented x3, Cooperative HEENT: Atraumatic, PERRLA, EOMI, Normocephalic Oral: No Gingival or Mucosal Lesions/ Ulcerations Neck: Supple, No JVD, Negative Carotid Bruits Chest wall/Lungs: Air entry diminished in bilateral lung bases. No crepitation/rhonchi Cardiovascular: Regular rate, Regular Rhythm, Normal S1, Normal S2, No M/G/R Abdomen: Bowel Sounds Present, Soft, Non Tender, Non-Distended : No dysuria. No renal angle tenderness. No suprapubic tenderness. Extremities: No edema, Capillary Refill Less than 3 Seconds Skin: Surgical dressing intact Musculoskeletal: No Tenderness to Palpation of Joints or Extremities. ROM restricted. Degenerative arthritis. Spine: Surgical dressing is dry. Had lumbar decompression surgery Neurological: Cranial nerves II-XII grossly intact, DTR 2+/4. No acute focal neurological deficit. Psych/Mental Status: Normal Affect, Appropriate. Lab / Micro Data 04/03/24 11:30 04/03/24 11:30 Labs: Laboratory Results - last 24 hr 04/12/24 08:57: POC Glucose 146 H 04/12/24 17:01: POC Glucose 182 H Charges/Coding Visit Charges Office Visits / Consults: 69220 OP Consult L4
[2024-04-12] MEDS: Atorvastatin Calcium 20 MG Tablet PO (20:16)
[2024-04-12] MEDS: Gabapentin 600 MG Tablet PO (20:17)
[2024-04-12] MEDS: Latanoprost 0.005% 1 Bottle 1 DRP EACH EYE (20:18)
[2024-04-13] VITALS (7 sets, daily range): BP systolic 102–132; BP diastolic 51–96; PULSE 76–97; RESP 16–18; TEMP 36.7–36.9; O2SAT 95–100
[2024-04-13] MEDS: Cefazolin 1 GM/50 ML BAG IV (02:24)
[2024-04-13] MEDS: Acetaminophen 500 MG Tablet 1000 MG PO ×3 (05:24→21:23)
[2024-04-13] MEDS: oxyCODONE 5 MG Tablet PO ×4 (05:24→22:45)
[2024-04-13] MEDS: Gabapentin 600 MG Tablet PO ×3 (05:24→21:22)
[2024-04-13 07:37] LABS: Absolute Lymphocyte Count 1.28 X10^3/uL (0.83-4.51); Basophil# 0.02 X10^3/uL; Basophil% 0.1 % (0-1); Eosinophil# 0.01 X10^3/uL; Eosinophils% 0.1 % (0-5); Hematocrit 37.4 % (40-54); Hemoglobin 12.5 g/dL (13.0-16.5); Lymphocyte # 1.28 X10^3/ul (0.83-4.51); Lymphocyte % 8.7 % (19-41); Mean Corp Hgb Conc 33.4 g/dL (32-36); Mean Corpuscular Hgb 29.7 pg (27.0-32.0); Mean Corpuscular Volume 88.8 fL (80-94); Mean Platelet Vol. 10.9 fl (6.2-12.0); Monocyte# 1.28 X10^3/uL; Monocyte% 8.7 % (0-10); NRBC Flagged by Analyzer 0 % (0-5); Neutrophil # 11.99 X10^3/uL (2.7-7.7); Neutrophil % 81.9 % (47-70); Platelet Count 205 K/mm3 (150-450); RBC Distribution Width CV 12.7 % (11.6-14.6); RBC Distribution Width SD 41.1 fl (35.1-43.9); Red Blood Count 4.21 M/mm3 (4.6-6.2); White Blood Count 14.7 K/mm3 (4.4-11.0)
[2024-04-13 08:00] LABS: Anion Gap 7 (5-15); BUN 23 mg/dL (7-18); BUN/Creat Ratio 20.9 RATIO (10-20); Calcium,Total 8.6 mg/dL (8.5-10.1); Chloride 103 mmol/L (98-107); EST Glomerular Filtration Rate 70 mL/min (>60); Est Glom Filt Rate - Afr Amer 85 mL/min (>60); Estimated Creatinine Clearance 77.81 ml/min; Glucose 177 mg/dL (74-106); Potassium 3.6 mmol/L (3.5-5.1); Sodium Level 137 mmol/L (136-145)
--- NOTE | 2024-04-13 09:05 | CASEMGMT ---
Addendum entered by Geetha Vinson 04/13/24 13:12: Updated on pt dc plan at this time via tc. Addendum entered by Geetha Vinson 04/13/24 10:55: 1000-KHADRA MARIA spoke with therapy regarding pt eval, recommending SNF for s/t therapy. Pt was assist of 2 to get oob. KHADRA MARIA into pt room, pt reports Davina is pt girlfriend, and her dtr is present in room. Pt agreeable to discussing dc plan with girlfriend's dtr present. Dtr states that it has been made aware to surgeon prior to surgery that pt could not care for himself post surgery if he could not trf on own. States she felt they were not heard. She states her mother is 5ft, oxygen dependent and cannot care for pt in the condition he is in. She states pt needs to get some s/t therapy to be able to transfer himself prior to coming home. Pt is agreeable to a SNF and also confirms this. He states he would like [facility] as first choice then [facility]. He denies need for a list at this time. Updated LILIAN Salas of request. Pt and ayah's dtr aware that SW will follow up with them. No further needs at this time. Original Note: KHADRA MARIA Assessment: Face to Face with pt for initial transition planning/care coordination assessment. KHADRA MARIA introduced self and role at [facility], pt voices understanding and consents to assessment. Pt is A&O x4 and answers all questions appropriately at this time. Pt lying in bed in no distress with nurse at bedside. Pt has a dc order in but has not been out of bed yet. Care providers, pharmacy, and demographics verified/updated. Admitting Dx:post lum interbody fusion PCP:Singh Specialists:radhames Oliva; Dimitri cardio in [facility] Preferred Pharmacy:[facility] Insurance:[facility] Prescription Benefit: yes LNOK:Michelle Horowitz, dtr; Davina Stauffer, friend Living Arrangements: Pt lives alone in a single story home with a ramp. Pt reports he was I in ADL's prior to surgery. Pt does his own laundry, gets groceries and gets his own breakfast. Pt friend Davina prepares lunch and dinner. Transportation: Pt drives self and denies concerns with transportation. Pt friend's dtr to transport pt home. DME:rollator, crutches, shower chair, w/c, FWW HHC/SNF:Pt has had HHC in the past after a knee surgery but cannot recall the name of the agency. Pt denies SNF stays. Pt states he plans on dc'ing to his friend's home which is also a 1 story home with a ramp to enter. Pt states he requested HHC to be set up but surgeon was not agreeable. Pt aware that RN CM will be back in to discuss dc plan with him once he works with therapy. Pt agreeable to this. Pt states no further concerns/needs. CM to follow. Advised pt to ask CM if any further question/concerns/needs arise, voices understanding. Pt Goal:Home to friend Davina's home Plan:TBD pending therapy giorgioal
[2024-04-13] MEDS: Losartan Potassium 100 MG Tablet PO (09:08)
[2024-04-13] MEDS: Potassium Chloride Oral Tablet 20 MEQ PO ×2 (09:08→16:50)
[2024-04-13] MEDS: Chlorthalidone 50 MG Tablet 25 MG PO (09:08)
--- NOTE | 2024-04-13 11:02 | PN.HOSP_ITS ---
Reason for Visit Reason for Visit: Diagnoses Spinal stenosis, lumbar region without neurogenic claudication (04/12/24) Encounter for other preprocedural examination (04/12/24) Subjective Subjective Saw patient at bedside this morning, daughter present. Patient was sitting up in bedside chair, conversing normally, in no acute distress at rest. Per patient and daughter, patient had fairly significant low back pain with ambulation this morning when working with physical therapy. Has taken 3 doses of oxycodone 5 mg to this point with mild relief of pain. He lives at home alone and he and daughter's primary concern is him going home without any help at home. They would prefer for him to go to a longterm facility on discharge if he qualifies. No other acute concerns this morning. Objective Data Objective Data Vital Signs: Vital Signs Temp Pulse Resp BP Pulse Ox O2 Del Method O2 Flow Rate 98.4 F 86 18 128/96 H 95 Room Air 4 04/13/24 08:59 04/13/24 08:59 04/13/24 08:59 04/13/24 08:59 04/13/24 08:59 04/13/24 08:59 04/12/24 18:20 Oxygen Flow Rate (L/min) 4 Oxygen Delivery Method Room Air Weight: 110.586 kg Body Mass Index (BMI) 34.4 Intake & Output: Intake and Output for Last 24 Hours 04/11/24 04/12/24 04/13/24 23:59 23:59 23:59 Intake Total 2275.67 / 2275.67 1050.5 / 1050.5 Output Total 315 / 615 650 / 650 Balance 1960.67 / 1660.67 400.5 / 400.5 Lab / Micro Data 04/13/24 06:23 04/13/24 06:23 Labs: Laboratory Results - last 24 hr 04/12/24 17:01: POC Glucose 182 H 04/13/24 06:23: WBC 14.7 H, RBC 4.21 L, Hgb 12.5 L, Hct 37.4 L, MCV 88.8, MCH 29.7, MCHC 33.4, RDW Std Deviation 41.1, RDW Coeff of Oliva 12.7, Plt Count 205, MPV 10.9, Immature Gran % (Auto) 0.500, Neut % (Auto) 81.9 H, Lymph % (Auto) 8.7 L, [place] % (Auto) 8.7, Eos % (Auto) 0.1, Baso % (Auto) 0.1, Absolute Neuts (auto) 12.0 H, Absolute Lymphs (auto) 1.28, Nucleated RBC % 0, Sodium 137, Potassium 3.6, Chloride 103, Carbon Dioxide 27.0, Anion Gap 7, BUN 23 H, Creatinine 1.10, Estim Creat Clear Calc 77.81, Est GFR (MDRD) Af Amer 85, Est GFR (MDRD) Non-Af 70, BUN/Creatinine Ratio 20.9 H, Glucose 177 H, Calcium 8.6 Micro: Microbiology 04/03/24 11:30 Swab (Method) Nasal Screen MRSA/MSSA - Final Radiography Diagnostic Testing: Radiology Impression Lumbar Spine X-Ray 04/12/24 09:10 IMPRESSION: Intraoperative fluoroscopic services provided for L4-L5 and L5-S1 level fusion. Electronically Signed: Hoang Torres MD at 10:39 EDT , Physical Exam Const alert, oriented x3 and no apparent distress Constitutional Narrative: Pleasant elderly male, obese, sitting up comfortably in bedside chair, conversing normally, no acute distress. General Appearance: cooperative and comfortable HEENT normocephalic, head/scalp atraumatic, hearing grossly normal bilaterally, nasal mucous membranes and turbinates normal and moist oral mucous membranes Eyes PERRL, EOMs intact bilaterally and conjunctivae normal Neck full ROM Chest inspection of chest normal Resp normal respiratory effort, normal air movement, no use of accessory muscles and clear to auscultation bilaterally Cardio regular rate, regular rhythm, no murmurs and peripheral pulses 2+ throughout GI normal to inspection, nondistended, normoactive bowel sounds, soft to palpation, non-tender and non-distended Back/Spine Back/Spine Narrative: Surgical dressing on low back dry. No gross abnormalities on visual exam. Stable. Extremity normal to inspection and no pedal edema Skin no rashes or lesions noted Neuro moves all extremities and no focal motor deficits Speech: speech normal Psych mental status grossly normal Assessment & Plan Assessment/Plan (1) Lumbar stenosis: PLAN: Plan Patient is a 68-year-old male who presented to [facility] on 04/12/2024 for planned low back procedure. Medicine consulted postoperatively for medical management. 1. Lumbar stenosis with spondylosis and degenerative disc disease, acute on chronic debility ? Orthopedic surgery primary. S/p L4-5 and L5-S1 posterior lumbar fusion with laminectomies and decompression on 04/[address] Oliva. No intraoperative complications. Patient with moderate to severe pain with ambulation on postop day 1. PT/OT/case management following. Patient and daughter requesting SNF on discharge, referrals pending. Pain management with scheduled Tylenol, home gabapentin and oxycodone as needed. Further management per orthopedics. Chronic medical conditions: ? Obesity: BMI 34 on admit. Complicates hospital course, care and prognosis. ? Hypertension: Stable. Continue home losartan and chlorthalidone. ? Hyperlipidemia: Continue home statin. ? Glaucoma: Continue home eyedrops. ? GERD: Continue home PPI. Total clinical time spent by myself addressing the patient's medical issues, reviewing all the data, and collaborating with patient's care team: 25 minutes. Charges/Coding Visit Charges Inpatient E&M: 958[address] [facility] Hosp L1
--- NOTE | 2024-04-13 12:15 | CASEMGMT ---
Social Work [id number]-LILIAN met with patient and contacted partner, Arquel via phone per patient request to discuss placement for rehab. Patient informed LILIAN that his partner Raquel will be assisting with providing choice for placement. Raquel informed SW that she would like patient placed on TCU or at [facility]. Raquel informed SW that she is unable to provide physical assistance with patient care in the home. Patient is currently a 2 person assist for transfers. Raquel informed LILIAN that the patient's goal is to become as independent as possible prior to return home. Patient will require insurance authorization approval for placement. LILIAN will continue to support patient and family for discharge planning. [phone]- LILIAN contacted TCU Admissions, Marlene to review for placement. Marlene informed LILIAN that she will try for placement on [facility] due to patient clinical qualifications. Marlene to discuss with Dr. Dhaliwal to review for approval. LILIAN notified patient and partner, Raquel. Patient and partner, Raquel is agreeable to placement on [facility]. Discharge Plan: Inpatient Rehab [facility]
--- NOTE | 2024-04-13 13:27 | PN.ORTHO_ITS ---
Subjective Subjective The patient was seen and examined postoperative day 1. Resting comfortably. Pain controlled. Progressing slowly with PT. Objective Data Objective Data Vital Signs: Vital Signs Temp Pulse Resp BP Pulse Ox O2 Del Method O2 Flow Rate 98.4 F 86 18 128/96 H 95 Room Air 4 04/13/24 08:59 04/13/24 08:59 04/13/24 08:59 04/13/24 08:59 04/13/24 08:59 04/13/24 08:59 04/12/24 18:20 Oxygen Flow Rate (L/min) 4 Oxygen Delivery Method Room Air Weight: 243 lb 12.8 oz Body Mass Index (BMI) 34.4 Intake & Output: Intake and Output for Last 24 Hours 04/11/24 04/12/24 04/13/24 23:59 23:59 23:59 Intake Total 2275.67 / 2275.67 1050.5 / 1050.5 Output Total 315 / 615 650 / 650 Balance 1960.67 / 1660.67 400.5 / 400.5 Lab / Micro Data 04/15/24 08:15 04/15/24 08:15 Labs: Laboratory Results - last 24 hr 04/12/24 17:01: POC Glucose 182 H 04/13/24 06:23: WBC 14.7 H, RBC 4.21 L, Hgb 12.5 L, Hct 37.4 L, MCV 88.8, MCH 29.7, MCHC 33.4, RDW Std Deviation 41.1, RDW Coeff of Oliva 12.7, Plt Count 205, MPV 10.9, Immature Gran % (Auto) 0.500, Neut % (Auto) 81.9 H, Lymph % (Auto) 8.7 L, [place] % (Auto) 8.7, Eos % (Auto) 0.1, Baso % (Auto) 0.1, Absolute Neuts (auto) 12.0 H, Absolute Lymphs (auto) 1.28, Nucleated RBC % 0, Sodium 137, Potassium 3.6, Chloride 103, Carbon Dioxide 27.0, Anion Gap 7, BUN 23 H, Creatinine 1.10, Estim Creat Clear Calc 77.81, Est GFR (MDRD) Af Amer 85, Est GFR (MDRD) Non-Af 70, BUN/Creatinine Ratio 20.9 H, Glucose 177 H, Calcium 8.6 Micro: Microbiology 04/03/24 11:30 Swab (Method) Nasal Screen MRSA/MSSA - Final Radiography Diagnostic Testing: Radiology Impression Lumbar Spine X-Ray 04/12/24 09:10 IMPRESSION: Intraoperative fluoroscopic services provided for L4-L5 and L5-S1 level fusion. Electronically Signed: Hoang Torres MD at 10:39 EDT , Physical Exam Const alert, oriented x3 and no apparent distress General Appearance: cooperative, comfortable and well kempt Neck full ROM General: normal visual inspection Resp normal respiratory effort and normal air movement Effort and Inspection: able to speak in complete sentences Cardio regular rate and peripheral pulses 2+ throughout GI soft to palpation, non-tender and non-distended Back/Spine Back/Spine Narrative: Dressing clean dry and intact. Incision well-approximated with interrupted sutures in place. No tenderness erythema drainage or fluctuance Cervical Spine: cervical ROM normal Thoracic Spine / Upper Back: normal to inspection Lumbar Spine / Lower Back: normal to inspection Extremity normal to inspection, full ROM, normal capillary refill, no joint enlargement, no clubbing, cyanosis or edema and no calf tenderness Skin no rashes or lesions noted General Skin Exam: no breakdown Neuro oriented x3, CN's II-XII intact bilaterally, moves all extremities, no focal motor deficits, no sensory deficits noted and deep tendon reflexes 2+ bilaterally Motor Exam: strength 5/5 throughout and muscle tone normal throughout Assessment & Plan Assessment/Plan (1) Lumbar stenosis: PLAN: Continue pain control and mobilization with physical therapy Rehab recommended and placement is pending Okay to discharge to rehab when arrangements made See postop instructions Follow-up with Dr. Frye as scheduled
[2024-04-13] MEDS: Atorvastatin Calcium 20 MG Tablet PO (21:22)
[2024-04-13] MEDS: Latanoprost 0.005% 1 Bottle 1 DRP EACH EYE (21:23)
[2024-04-14 04:09] VITALS: PULSE 76
[2024-04-14 05:02] VITALS: BP 109/64; PULSE 74; RESP 16; TEMP 36.8; O2SAT 97
[2024-04-14] MEDS: Gabapentin 600 MG Tablet PO ×3 (05:03→23:15)
[2024-04-14] MEDS: Acetaminophen 500 MG Tablet 1000 MG PO ×3 (05:03→23:15)
[2024-04-14] MEDS: oxyCODONE 5 MG Tablet PO ×4 (05:23→23:15)
[2024-04-14] MEDS: Potassium Chloride Oral Tablet 20 MEQ PO ×2 (08:37→17:34)
[2024-04-14] MEDS: Senna Tablet 2 TABLET PO ×2 (10:37→23:17)
[2024-04-14 10:38] VITALS: BP 102/62; PULSE 80; RESP 18; TEMP 36.9; O2SAT 95
--- NOTE | 2024-04-14 11:24 | PN.HOSP_ITS ---
Reason for Visit Reason for Visit: Diagnoses Spinal stenosis, lumbar region without neurogenic claudication (04/12/24) Encounter for other preprocedural examination (04/12/24) Subjective Subjective No acute events overnight. Saw patient at bedside this morning. Patient was sitting up in bed and did appear to be in mild distress due to low back pain. Still the pain has been fairly well-controlled with the medication and he was waiting on another dose of pain medication at that time. He denied any new pain or discomfort this morning. No other new concerns. Objective Data Objective Data Vital Signs: Vital Signs Temp Pulse Resp BP Pulse Ox O2 Del Method O2 Flow Rate 98.5 F 80 18 102/62 95 Room Air 4 04/14/24 10:38 04/14/24 10:38 04/14/24 10:38 04/14/24 10:38 04/14/24 10:38 04/14/24 10:38 04/12/24 18:20 Oxygen Flow Rate (L/min) 4 Oxygen Delivery Method Room Air Weight: 110.586 kg Body Mass Index (BMI) 34.4 Intake & Output: Intake and Output for Last 24 Hours 04/12/24 04/13/24 04/14/24 23:59 23:59 23:59 Intake Total 2275.67 / 2275.67 1270.5 / 1270.5 300 / 300 Output Total 315 / 615 1250 / 1250 300 / 300 Balance 1960.67 / 1660.67 20.5 / 20.5 0 / 0 Lab / Micro Data 04/13/24 06:23 04/13/24 06:23 Micro: Microbiology 04/03/24 11:30 Swab (Method) Nasal Screen MRSA/MSSA - Final Physical Exam Const alert, oriented x3 and no apparent distress Constitutional Narrative: Pleasant elderly male, obese, sitting up in bed, mild distress due to lower back pain, otherwise conversing normally. General Appearance: cooperative and comfortable HEENT normocephalic, head/scalp atraumatic, hearing grossly normal bilaterally, nasal mucous membranes and turbinates normal and moist oral mucous membranes Eyes PERRL, EOMs intact bilaterally and conjunctivae normal Neck full ROM Chest inspection of chest normal Resp normal respiratory effort, normal air movement, no use of accessory muscles and clear to auscultation bilaterally Cardio regular rate, regular rhythm, no murmurs and peripheral pulses 2+ throughout GI normal to inspection, nondistended, normoactive bowel sounds, soft to palpation, non-tender and non-distended Back/Spine Back/Spine Narrative: Surgical dressing on low back dry. No gross abnormalities on visual exam. Stable. Extremity normal to inspection and no pedal edema Skin no rashes or lesions noted Neuro moves all extremities and no focal motor deficits Speech: speech normal Psych mental status grossly normal Assessment & Plan Assessment/Plan (1) Lumbar stenosis: PLAN: Plan Patient is a 68-year-old male who presented to [facility] on 04/12/2024 for planned low back procedure. Medicine consulted postoperatively for medical management. 1. Lumbar stenosis with spondylosis and degenerative disc disease, acute on chronic debility ? Orthopedic surgery primary. S/p L4-5 and L5-S1 posterior lumbar fusion with laminectomies and decompression on 04/[address] Oliva. No intraoperative complications. Patient with moderate to severe pain with ambulation on postop day 1. PT/OT/case management following. Planning for SNF versus [facility] on discharge, referrals pending. Pain management with scheduled Tylenol, home gabapentin and oxycodone as needed. Further management per orthopedics. Chronic medical conditions: ? Obesity: BMI 34 on admit. Complicates hospital course, care and prognosis. ? Hypertension: Stable. Continue home losartan and chlorthalidone. ? Hyperlipidemia: Continue home statin. ? Glaucoma: Continue home eyedrops. ? GERD: Continue home PPI. Total clinical time spent by myself addressing the patient's medical issues, reviewing all the data, and collaborating with patient's care team: 25 minutes. Charges/Coding Visit Charges Inpatient E&M: [id number] [facility] Hosp L1
--- NOTE | 2024-04-14 14:10 | CASEMGMT ---
Social Work Received message from Marlene in admissions for [facility] inpatient RU. Insurance called to offer a peer to peer for this patient, before decision for the RU unit is made. Per Brissa at the insurance: Peer to Peer must be done before Tuesday 624.24 12noon Central Standard Time (so would be 1300 EST). Reference number for the RU request is: [id number] Number to call: At time of call will need: Name, date of , and insurance ID. Called sheeter waxer operator to reach Dr. Oliva. Received provider's voicemail. Left message with this mortgage loan underwriter's name and number to call back with details if provider would be agreeable to complete the peer to peer, along with deadline for call to insurance. Plan: [facility] inpatient rehab, pending insurance authorization. SW following for discharge planning. -ESAU Sun
[2024-04-14 17:28] VITALS: BP 118/67; PULSE 89; RESP 16; TEMP 36.6; O2SAT 95
[2024-04-14 23:14] VITALS: BP 129/76; PULSE 86; RESP 16; TEMP 37.4; O2SAT 96
[2024-04-14] MEDS: Latanoprost 0.005% 1 Bottle 1 DRP EACH EYE (23:17)
[2024-04-14] MEDS: Atorvastatin Calcium 20 MG Tablet PO (23:17)
[2024-04-15 04:40] VITALS: BP 115/74; PULSE 79; RESP 16; TEMP 37.2; O2SAT 96
[2024-04-15] MEDS: oxyCODONE 5 MG Tablet PO ×4 (04:41→22:07)
[2024-04-15] MEDS: Acetaminophen 500 MG Tablet 1000 MG PO ×3 (06:40→22:07)
[2024-04-15] MEDS: Gabapentin 600 MG Tablet PO ×3 (06:40→22:07)
[2024-04-15 07:49] VITALS: BP 130/80; PULSE 83; RESP 16; TEMP 36.8; O2SAT 94
[2024-04-15] MEDS: Potassium Chloride Oral Tablet 20 MEQ PO ×2 (08:04→17:35)
[2024-04-15] MEDS: Polyethylene Glycol 3350 17 GM PACKET PO (08:04)
[2024-04-15 08:33] LABS: Hematocrit 33.6 % (40-54); Hemoglobin 11.2 g/dL (13.0-16.5); Mean Corp Hgb Conc 33.3 g/dL (32-36); Mean Corpuscular Hgb 29.4 pg (27.0-32.0); Mean Corpuscular Volume 88.2 fL (80-94); Mean Platelet Vol. 10.5 fl (6.2-12.0); Platelet Count 187 K/mm3 (150-450); RBC Distribution Width CV 12.7 % (11.6-14.6); RBC Distribution Width SD 41.5 fl (35.1-43.9); Red Blood Count 3.81 M/mm3 (4.6-6.2); White Blood Count 11.7 K/mm3 (4.4-11.0)
[2024-04-15 08:47] LABS: Anion Gap 5 (5-15); BUN 20 mg/dL (7-18); BUN/Creat Ratio 18.5 RATIO (10-20); Calcium,Total 9.1 mg/dL (8.5-10.1); Chloride 102 mmol/L (98-107); Creatinine, Serum 1.08 mg/dL (0.70-1.30); EST Glomerular Filtration Rate 72 mL/min (>60); Est Glom Filt Rate - Afr Amer 87 mL/min (>60); Estimated Creatinine Clearance 79.25 ml/min; Glucose 171 mg/dL (74-106); Potassium 3.3 mmol/L (3.5-5.1); Sodium Level 136 mmol/L (136-145)
--- NOTE | 2024-04-15 11:03 | PCM.PN.HOSP ---
Reason for Visit Reason for Visit: Diagnoses Spinal stenosis, lumbar region without neurogenic claudication (04/12/24) Encounter for other preprocedural examination (04/12/24) Subjective Subjective No acute events overnight. Saw patient at bedside in the ED. Sitting up in bed, conversing normally. Appears to be in mild discomfort due to ongoing lower back pain and appears mildly fatigued, similar to yesterday. He was about to go have a bowel movement when I saw him and has been passing gas without issue. Has been using oxycodone 5 mg fairly regularly for pain control and states it has been mild-moderately helpful for his pain. He has been getting up and moving around with assistance without significant pain, which is mildly improved from previous days. No other new concerns morning. Objective Data Objective Data Vital Signs: Vital Signs Temp Pulse Resp BP Pulse Ox O2 Del Method O2 Flow Rate 98.2 F 83 16 130/80 H 94 Room Air 4 04/15/24 07:49 04/15/24 07:49 04/15/24 07:49 04/15/24 07:49 04/15/24 07:49 04/15/24 07:49 04/12/24 18:20 Oxygen Flow Rate (L/min) 4 Oxygen Delivery Method Room Air Weight: 110.586 kg Body Mass Index (BMI) 34.4 Intake & Output: Intake and Output for Last 24 Hours 04/13/24 04/14/24 04/15/24 23:59 23:59 23:59 Intake Total 1270.5 / 1270.5 1500 / 1500 Output Total 1250 / 1250 1800 / 1800 400 / 400 Balance 20.5 / 20.5 -300 / -300 -400 / -400 Lab / Micro Data 04/15/24 08:15 04/15/24 08:15 Labs: Laboratory Results - last 24 hr 04/15/24 08:15: WBC 11.7 H, RBC 3.81 L, Hgb 11.2 L, Hct 33.6 L, MCV 88.2, MCH 29.4, MCHC 33.3, RDW Std Deviation 41.5, RDW Coeff of Oliva 12.7, Plt Count 187, MPV 10.5, Sodium 136, Potassium 3.3 L, Chloride 102, Carbon Dioxide 29.0, Anion Gap 5, BUN 20 H, Creatinine 1.08, Estim Creat Clear Calc 79.25, Est GFR (MDRD) Af Amer 87, Est GFR (MDRD) Non-Af 72, BUN/Creatinine Ratio 18.5, Glucose 171 H, Calcium 9.1 Micro: Microbiology 04/03/24 11:30 Swab (Method) Nasal Screen MRSA/MSSA - Final Physical Exam Const alert, oriented x3 and no apparent distress Constitutional Narrative: Pleasant elderly male, obese, sitting up in bed, mild distress due to lower back pain, otherwise conversing normally. General Appearance: cooperative and comfortable HEENT normocephalic, head/scalp atraumatic, hearing grossly normal bilaterally, nasal mucous membranes and turbinates normal and moist oral mucous membranes Eyes PERRL, EOMs intact bilaterally and conjunctivae normal Neck full ROM Chest inspection of chest normal Resp normal respiratory effort, normal air movement, no use of accessory muscles and clear to auscultation bilaterally Cardio regular rate, regular rhythm, no murmurs and peripheral pulses 2+ throughout GI normal to inspection, nondistended, normoactive bowel sounds, soft to palpation, non-tender and non-distended Back/Spine Back/Spine Narrative: Lumbar spine brace in place over down. Stable. Extremity normal to inspection and no pedal edema Skin no rashes or lesions noted Neuro moves all extremities and no focal motor deficits Speech: speech normal Psych mental status grossly normal Assessment & Plan Assessment/Plan (1) Lumbar stenosis: PLAN: Plan Patient is a 68-year-old male who presented to [facility] on 04/12/2024 for planned low back procedure. Medicine consulted postoperatively for medical management. 1. Lumbar stenosis with spondylosis and degenerative disc disease, acute on chronic debility ? Orthopedic surgery primary. S/p L4-5 and L5-S1 posterior lumbar fusion with laminectomies and decompression on 04/[address] Oliva. No intraoperative complications. Patient with moderate to severe pain with ambulation on postop day 1, slowly improving. PT/OT/case management following. Planning for SNF versus IPR on discharge, referrals pending. Pain management with scheduled Tylenol, home gabapentin and oxycodone as needed. Scheduled senna and MiraLAX as needed for bowel regimen. Further management per orthopedics. Chronic medical conditions: ? Obesity: BMI 34 on admit. Complicates hospital course, care and prognosis. ? Hypertension: Stable. Continue home losartan and chlorthalidone. ? Hyperlipidemia: Continue home statin. ? Glaucoma: Continue home eyedrops. ? GERD: Continue home PPI. Total clinical time spent by myself addressing the patient's medical issues, reviewing all the data, and collaborating with patient's care team: 25 minutes. Charges/Coding Visit Charges Inpatient E&M: 19976 Subs Hosp L1
[2024-04-15] MEDS: Potassium Chloride Oral Tablet 20 MEQ 40 MEQ PO (12:02)
[2024-04-15 14:13] VITALS: BP 118/90; PULSE 95; RESP 16; TEMP 36.9; O2SAT 98
[2024-04-15 17:36] VITALS: BP 121/70; PULSE 88; RESP 16; TEMP 36.8; O2SAT 96
[2024-04-15 22:06] VITALS: BP 103/58; PULSE 89; RESP 16; TEMP 36.9; O2SAT 93
[2024-04-15] MEDS: Senna Tablet 2 TABLET PO (22:07)
[2024-04-15] MEDS: Atorvastatin Calcium 20 MG Tablet PO (22:07)
[2024-04-15] MEDS: Latanoprost 0.005% 1 Bottle 1 DRP EACH EYE (22:07)
[2024-04-16 03:38] VITALS: BP 118/56; PULSE 76; RESP 16; TEMP 36.6; O2SAT 96
[2024-04-16] MEDS: Acetaminophen 500 MG Tablet 1000 MG PO ×2 (05:22→13:16)
[2024-04-16] MEDS: oxyCODONE 5 MG Tablet PO ×3 (05:22→13:17)
[2024-04-16] MEDS: Gabapentin 600 MG Tablet PO ×2 (05:22→13:20)
--- NOTE | 2024-04-16 08:25 | CASEMGMT ---
Addendum entered by Aster Bautista 04/16/24 09:49: Social Work RN spoke w/Dr. Oliva, Michael is not going to approve rehab for pt, stating that pt needs to see a physician three times per week in order to qualify, and he does not need that. SW spoke w/Marlene, pt not accepted for TCU. D/C capacity planning manager Noemy did send a referral to [facility]. SW spoke w/pt, explained the above. He is in agreement w/referral to [facility]. SW inquired who to call to update, he states to call his daughter Michelle. SW called daughter Michelle. SW explained that insurance not approving rehab and he is not accepted into TCU. SW explained referral sent to [facility], she is also in agreement w/this. Michelle clarified that Raquel is Davina's daughter, Davina is pt's significant other. Michelle states that she is the one to help pt w/discharge planning, not Raquel. SW reassured Michlele that she is next of kin. Pt does not have any other children, and pt and [place] are not . Pt has not completed POA papers as per Michelle identifying anyone else as POA, so SW reassured Michelle that if pt is not able to make decisions, she would be the next of kin. LILIAN will continue to follow, referral pending w/[facility]. CHRISTINA Damon Original Note: Social Work Dr. Oliva spoke w/bedside RN, she gave physician all information for the peer to peer with Michael. LILIAN will continue to follow. CHRISTINA Damon
--- NOTE | 2024-04-16 08:55 | CASEMGMT ---
Addendum entered by Noemy Grant 04/16/24 11:12: [facility] accepted patient and will begin precert. Noemy Grant DC Planning Asst. Original Note: Discharge Planning Referral sent to [facility] via [facility]. Noemy Grant DC Planning Asst.
[2024-04-16] MEDS: Potassium Chloride Oral Tablet 20 MEQ PO (09:14)
[2024-04-16 09:15] VITALS: BP 123/86; PULSE 88; RESP 16; TEMP 36.4; O2SAT 96
--- NOTE | 2024-04-16 11:22 | PCM.PN.ORT ---
Subjective Subjective Seen and examined. Patient is up out of bed walking with back brace on. He is ambulating well with a walker. His back pain is minimal. His leg pain that he had prior to surgery has improved. He denies any acute numbness tingling weakness or changes in bowel or bladder function Objective Data Objective Data Vital Signs: Vital Signs Temp Pulse Resp BP Pulse Ox O2 Del Method O2 Flow Rate 97.6 F L 88 16 123/86 H 96 Room Air 4 04/16/24 09:15 04/16/24 09:15 04/16/24 09:15 04/16/24 09:15 04/16/24 09:15 04/16/24 09:15 04/12/24 18:20 Oxygen Flow Rate (L/min) 4 Oxygen Delivery Method Room Air Weight: 243 lb 12.8 oz Body Mass Index (BMI) 34.4 Intake & Output: Intake and Output for Last 24 Hours 04/14/24 04/15/24 04/16/24 23:59 23:59 23:59 Intake Total 1500 / 1500 1250 / 1250 Output Total 1800 / 1800 400 / 600 400 / 400 Balance -300 / -300 850 / 650 -400 / -400 Lab / Micro Data 04/15/24 08:15 04/15/24 08:15 Micro: Microbiology 04/03/24 11:30 Swab (Method) Nasal Screen MRSA/MSSA - Final Physical Exam Const alert, oriented x3 and no apparent distress General Appearance: cooperative, comfortable and well kempt Neck full ROM General: normal visual inspection Resp normal respiratory effort and normal air movement Effort and Inspection: able to speak in complete sentences Cardio regular rate and peripheral pulses 2+ throughout GI soft to palpation, non-tender and non-distended Back/Spine Back/Spine Narrative: Dressing clean dry and intact Cervical Spine: cervical ROM normal Thoracic Spine / Upper Back: normal to inspection Lumbar Spine / Lower Back: normal to inspection Extremity normal to inspection, full ROM, normal capillary refill, no clubbing, cyanosis or edema and no calf tenderness Skin no rashes or lesions noted General Skin Exam: no breakdown Neuro oriented x3, CN's II-XII intact bilaterally, moves all extremities, no focal motor deficits, no sensory deficits noted and deep tendon reflexes 2+ bilaterally Motor Exam: strength 5/5 throughout and muscle tone normal throughout Assessment & Plan Assessment/Plan (1) Lumbar stenosis: PLAN: Inpatient rehab was denied Currently working on possible extended care placement Continue pain control and mobilization with physical therapy Continue discharge planning, okay to DC from spine surgery standpoint when arrangements made
--- NOTE | 2024-04-16 11:31 | PCM.PN.HOSP ---
Reason for Visit Reason for Visit: Diagnoses Spinal stenosis, lumbar region without neurogenic claudication (04/12/24) Encounter for other preprocedural examination (04/12/24) Subjective Subjective No acute events overnight. Saw patient at bedside this morning. Patient was sitting up comfortably in bedside chair, conversing normally, in no acute distress. He appeared to have better energy and less pain this morning than previous days. Stated he was up and walking around with assistance and felt better today, did not have as much pain as previously. No other acute concerns this morning. Objective Data Objective Data Vital Signs: Vital Signs Temp Pulse Resp BP Pulse Ox O2 Del Method O2 Flow Rate 97.6 F L 88 16 123/86 H 96 Room Air 4 04/16/24 09:15 04/16/24 09:15 04/16/24 09:15 04/16/24 09:15 04/16/24 09:15 04/16/24 09:15 04/12/24 18:20 Oxygen Flow Rate (L/min) 4 Oxygen Delivery Method Room Air Weight: 110.586 kg Body Mass Index (BMI) 34.4 Intake & Output: Intake and Output for Last 24 Hours 04/14/24 04/15/24 04/16/24 23:59 23:59 23:59 Intake Total 1500 / 1500 1250 / 1250 Output Total 1800 / 1800 400 / 600 400 / 400 Balance -300 / -300 850 / 650 -400 / -400 Lab / Micro Data 04/15/24 08:15 04/15/24 08:15 Micro: Microbiology 04/03/24 11:30 Swab (Method) Nasal Screen MRSA/MSSA - Final Physical Exam Const alert, oriented x3 and no apparent distress Constitutional Narrative: Pleasant elderly male, obese, sitting up comfortably in bed, conversing normally, in no acute distress. General Appearance: cooperative and comfortable HEENT normocephalic, head/scalp atraumatic, hearing grossly normal bilaterally, nasal mucous membranes and turbinates normal and moist oral mucous membranes Eyes PERRL, EOMs intact bilaterally and conjunctivae normal Neck full ROM Chest inspection of chest normal Resp normal respiratory effort, normal air movement, no use of accessory muscles and clear to auscultation bilaterally Cardio regular rate, regular rhythm, no murmurs and peripheral pulses 2+ throughout GI normal to inspection, nondistended, normoactive bowel sounds, soft to palpation, non-tender and non-distended Back/Spine Back/Spine Narrative: Lumbar spine brace in place over gown. Stable. Extremity normal to inspection and no pedal edema Skin no rashes or lesions noted Neuro moves all extremities and no focal motor deficits Speech: speech normal Psych mental status grossly normal Assessment & Plan Assessment/Plan (1) Lumbar stenosis: PLAN: Plan Patient is a 68-year-old male who presented to [facility] on 04/12/2024 for planned low back procedure. Medicine consulted postoperatively for medical management. 1. Lumbar stenosis with spondylosis and degenerative disc disease, acute on chronic debility ? Orthopedic surgery primary. S/p L4-5 and L5-S1 posterior lumbar fusion with laminectomies and decompression on 04/[address] Oliva. No intraoperative complications. Patient with moderate to severe pain with ambulation on postop day 1, slowly improving. PT/OT/case management following. Unfortunately inpatient rehab was denied by insurance. Patient will be going to SNF instead. Medically stable for discharge on 04/16. Continue pain management with scheduled Tylenol, home gabapentin and oxycodone as needed. Scheduled senna and MiraLAX as needed for bowel regimen. Further management per orthopedics. Chronic medical conditions: ? Obesity: BMI 34 on admit. Complicates hospital course, care and prognosis. ? Hypertension: Stable. Continue home losartan and chlorthalidone. ? Hyperlipidemia: Continue home statin. ? Glaucoma: Continue home eyedrops. ? GERD: Continue home PPI. Total clinical time spent by myself addressing the patient's medical issues, reviewing all the data, and collaborating with patient's care team: 25 minutes. Charges/Coding Visit Charges Inpatient E&M: 47515 Subs Hosp L1
--- NOTE | 2024-04-16 14:02 | PCM.TXEXTCAR ---
Diet Diet Order/Speech Therapy: 04/12/24 18:47 Diet: Regular - General Is pt able to select menu?: Yes Wound(s) LOWER BACK: Wound Type: Surgical Incision (DO NOT REMOVE SUTURES) Dressing Change: Dry Sterile Dressing (daily) Therapies Physical Therapy: Eval and Treat Occupational Therapy: Eval and Treat Narrative: wear back brace at all times. OK to remove brace to sleep. No repetitive bending, twisting or lifting more than 5 lbs Problem/Diagnosis (1) Lumbar stenosis: Status: Acute Code(s): M48.061 - Spinal stenosis, lumbar region without neurogenic claudication Plan: Okay to admit See orders Discharge planning, likely home tomorrow Allergies/Procedures Done in Hospital Allergies No Known Allergies Allergy (Verified 04/12/24 08:44) Type of Care/Length of Stay Estimated LOS: Convalescent Care Less Than 30 days Type of Care Needed: Skilled Rehab Potential: Good Prognosis: Good Additional Orders/Day of Discharge Day of Discharge: 04/16/24 Dietary and Speech Recommendations Dietitian Recommendations/Changes: regular diet Follow Up Care Please Follow Up With: Keanu Oliva DO When: 3 weeks Discharge Plan Admission Admit Date/Time: 04/12/24 08:01 Attending Provider: Keanu Oliva Primary Care Provider: Promise Winters Consulting Providers: Nico Sullivan; Odilon Cruz Instructions Additional Instructions / Restrictions: 1. During your procedure, you received sedation through your IV. Please follow these instructions for the next 24 hours: Do not drive a motor vehicle, do not drink any alcoholic beverages, and do not sign any legal documents or make personal or business decisions. A responsible adult should stay with you at least 6 hours after the procedure. 2. Keep your surgical site/incision clean and the dressing dry and intact. You may use an ice pack at the surgical site to reduce any swelling or discomfort. 3. Monitor the incision site for any signs or symptoms of infection. Watch for redness, excessive swelling or drainage, or continued pain at the incision site after 3 days. Contact your physician immediately for a fever, chills or a temperature of 101.5? F or greater. 4. Take your medication exactly as prescribed by your physician. Do not attempt to wean yourself off any of your medications even though your pain is improving. This process needs to be carefully monitored by your doctor. Take any antibiotics prescribed exactly as directed and until they are gone. 5. Avoid stretching, bending, pulling, twisting or any sudden movements. Do not bend or twist at the waist. Wear back brace at all times 6. No lifting greater than 5 pounds. 7. Do not operate a motor vehicle, equipment or a power tool while taking pain medication 8. Do not have any manipulation done by a chiropractor or any other physician without first consulting with the surgeon 9. Please contact our office if you are even scheduled for a CT scan or an MRI. 10. Please call us if you have any questions, problems or concerns. Discharge Orders/Prescriptions Prescriptions: New hydrocodone-acetaminophen 5-325 mg tablet 1 tab PO Q6H 7 Days Qty: 28 0RF Continued latanoprost 1 DROP bottle 1 drp EACH EYE QHS Patient Comments: eye drops losartan 100 MG tablet 100 mg PO DAILY atorvastatin 20 mg tablet 20 mg PO QPM gabapentin 600 mg tablet 600 mg PO TID potassium chloride 20 mEq tablet,ER particles/crystals 20 meq PO BID omeprazole 20 mg capsule,delayed release(DR/EC) 20 mg PO Q8H PRN (Reason: HEARTBURN) Patient Comments: PT STATES HE ONLY TAKES PRN chlorthalidone 25 mg tablet 25 mg PO DAILY Other Ambulatory Orders: 12 Lead EKG (Routine) Timeframe: [id number] Location: None Selected Ordered By: Dr. Keanu Oliva Referrals / Follow Up: Keanu Oliva DO [Med Staff - Active Staff] - Promise Winters PA [Primary Care Provider] - Disposition Disposition (needs filled in before D/C Order can be placed): Inpatient Rehab Unit/Facility
--- NOTE | 2024-04-16 14:05 | CASEMGMT ---
Discharge Planning [facility] has obtained auth. SW updated. Noemy Grant DC Planning Asst.
--- NOTE | 2024-04-16 14:41 | CASEMGMT ---
Social Work Pt was approved by insurance to go to [facility]. SW completed the hospital exemption, d/c pre planning advisor Noemy set up pt's discharge. No further needs, pt to [facility] today, skilled. CHRISTINA Damon
--- NOTE | 2024-04-16 14:47 | CASEMGMT ---
Discharge Planning Discharge orders, signed med list, and transport time sent to [facility] via [facility]. Physicians will transport patient by wheelchair at 4:30p. Nursing, SW, and patient updated. Called placed to pts daughter (Michelle) who was to call me back but has yet to do so. Noemy Grant DC Planning Asst.
[2024-04-16 15:21] VITALS: BP 124/83; PULSE 76; RESP 16; TEMP 36.7; O2SAT 95
--- NOTE | 2024-04-16 15:29 | NURSING ---
report called to Leti at [facility], will call again when transport comes to notify them of pt leaving
== END 2024-04-16 16:50 | DRG 455 ==
LOC: ACINP 10:20 → MS3 19:56
PROVIDERS: Anesthesiology; Hospitalist; Internal Medicine; Admitting Provider Orthopaedic Surgery; Referring Provider Orthopaedic Surgery; Visit Provider Orthopaedic Surgery
PROC: 0SG10AJ Fusion of 2 or more Lumbar Vertebral Joints with Interbody Fusion Device, Posterior Approach, Anterior Column, Open Approach (ICD-10-PCS; CPT 22630; principal; 2024-04-12 09:40)
DX: M48.061 Spinal stenosis, lumbar region without neurogenic claudication (principal); E66.9 Obesity, unspecified; I10 Essential (primary) hypertension; E78.5 Hyperlipidemia, unspecified; M51.36 Other intervertebral disc degeneration, lumbar region; M47.816 Spondylosis without myelopathy or radiculopathy, lumbar region; K21.9 Gastro-esophageal reflux disease without esophagitis; H40.9 Unspecified glaucoma; Z87.891 Personal history of nicotine dependence; Z68.34 Body mass index [BMI] 34.0-34.9, adult
CPT/HCPCS: 36415; 71046; 72100; 76000; 80048; 82962; 83036; 83735; 85025; 85027; 85610; 85730; 87081; 93005; 94668; 97110; 97162; 97166; 97530; 97535; C1713; J7120; J2405

== ENCOUNTER → 2025-04-19 | Outpatient (CLI) | payer MEDICARE, SELFPAY ==
--- NOTE | 2025-04-19 07:48 | MRI_ITS ---
PROCEDURE: SPINE LUMBAR W/WO CONTRAST 04/19/2025 REASON FOR EXAM: HX OF FUSION AND LOW BACK PAIN, DEGENERATIVE TECHNIQUE: SPINE LUMBAR W/WO CONTRAST Multiplanar and multisequence images were obtained without and with intravenous gadolinium-based contrast administration. CONTRAST: Clariscan VOLUME: 22 mL intravenous. COMPARISON: Lumbar spine series of 03/05/2025 and lumbar spine MRI 02/13/2024. FINDINGS: Metallic artifact from the posterior fixation device and bilateral pedicle screws from L4 through S1 is present. Vertebrae: Given the aforementioned limitations, no abnormal osseous signal is seen. Alignment: Mild anterior subluxation of L4 upon L5 is seen, similar to the study of 03/05/2025. Conus Medullaris: Normal appearance, positioned at the T12-L1 level. L1-2: Moderate posterior facet and ligamentum flavum hypertrophy is seen. No significant disc bulge or herniation is evident. No spinal canal stenosis or neural foraminal narrowing is seen. L2-3: Moderate posterior facet and ligamentum flavum hypertrophy is seen. No significant disc bulge or herniation is seen. No spinal canal stenosis or significant neural foraminal narrowing is noted. L3-4: Limited by metallic artifact. Moderate posterior facet and ligamentum flavum hypertrophy is seen. No spinal canal stenosis is noted. No significant disc bulge or herniation is seen. Mild left neural foraminal narrowing is noted. L4-5: Limited by metallic artifact. At this level mild anterolisthesis, uncovered disc is noted. This, combined with mild vertebral body osteophytosis the mild anterolisthesis, results in moderate bilateral neural foraminal narrowing. No significant spinal canal stenosis is seen. L5-S1: Limited by metallic artifact. No spinal canal stenosis is seen. A mild right lateral disc protrusion is seen. Mild left vertebral body osteophytosis is noted. Probable mild bilateral neural foraminal narrowing, as well. Sacrum: Mild bilateral sacroiliac joint degenerative changes are seen. Postcontrast images: No unexpected area of postcontrast enhancement is seen. Evaluation somewhat limited by areas of metallic artifact MRI/Spine Lumbar W/WO Contrast IMPRESSION: Multilevel lumbar degenerative disc disease and postsurgical changes as describ ed. Reading Location: [place] [id number]
== END | disposition home or self-care (01) ==
PROVIDERS: Referring Provider Student in an Organized Health Care Education/Training Program; Visit Provider Student in an Organized Health Care Education/Training Program
DX: M51.360 Other intervertebral disc degeneration, lumbar region with discogenic back pain only (principal); Z98.1 Arthrodesis status
CPT/HCPCS: 72158

== ENCOUNTER → 2025-05-24 | Outpatient (CLI) | payer MEDICARE, SELFPAY ==
--- NOTE | 2025-05-24 14:50 | CT_ITS ---
PROCEDURE: SPINE LUMBAR WITHOUT CONTRAST 05/24/2025 REASON FOR EXAM: TO RULE OUT PSEUDARTHROSIS TECHNIQUE: SPINE LUMBAR WITHOUT CONTRAST Coronal and Sagittal reconstruction series were provided. One or more dose reduction techniques were used (e.g., Automated exposure control, adjustment of the mA and/or kV according to patient size, use of iterative reconstruction technique COMPARISON: Prior MRI of the lumbar spine dated April 24, 2025. RADIATION DOSE SUMMARY: CTDlvol: 34.31 mGy DLP: 1511.79 mGycm FINDINGS: Vertebrae: Multilevel spondylosis. Alignment: Minimal anterior listhesis of L4 on L5. L1-2: Mild degree of disc space narrowing. Anterior spondylosis. Facet joint osteoarthritis and hypertrophy. Hypertrophy of the ligamentum flava. Mild degree of bilateral neural foraminal stenosis. L2-3: The disc space is relatively well-maintained. Anterior spondylosis. Facet joint hypertrophy as well as the ligamentum flava. No significant disc bulge is seen. No significant central or neural foraminal stenosis. L3-4: Mild anterior spondylosis. Facet joint osteoarthritis and hypertrophy. Mild posterior disc bulge. Moderate degree of bilateral neural foraminal stenosis. L4-5: The patient is status post laminectomy and intrapedicular screw fixation. A lucency is seen surrounding the right intrapedicular screw in the superior aspect of the L4 vertebrae on the right side. The left screw is unremarkable. A prosthetic disc is seen. There is anterior listhesis of L4 on L5. L5-S1: Status post intrapedicular screw fixation and prosthetic disc placement. The screws are in good position and are unremarkable. There is evidence of irregular sclerosis along the superior endplate of the L5 vertebrae. No significant stenosis seen. Sacrum: Unremarkable CT/Spine Lumbar without Contrast IMPRESSION: Status post fusion at the L4-L5 and L5-S1 levels with intrapedicular screw and vitaliy fixation and prosthetic disc. Lucency is seen surrounding the pedicular screw on the right side at the L4 edu tebral level. Other findings as described above. Reading Location: [id number]
== END | disposition home or self-care (01) ==
LOC: CT 14:38
PROVIDERS: Referring Provider Orthopaedic Surgery Orthopaedic Surgery of the Spine; Visit Provider Orthopaedic Surgery Orthopaedic Surgery of the Spine
DX: M96.0 Pseudarthrosis after fusion or arthrodesis (principal)
CPT/HCPCS: 72131